=== PATIENT | male | born 1985 ===

== ENCOUNTER 2020-03-07 19:05 | Emergency (ER) | payer OTHER, SELFPAY ==
--- NOTE | 2020-03-07 19:28 | ED_ITS ---
HPI - General Adult General Chief complaint: General Medical Stated complaint: sinus pain Time Seen by Provider: 03/07/20 19:28 Source: patient History of Present Illness HPI narrative: Patient presents to the ED for sinus pain for 3 days and sneezing. patient denies any recent trauma to the face, fever, chills, chest pain, shorntess of breath, weakness, nausea, or emesis. Related Data Previous Rx's Medication Instructions Recorded loratadine [Claritin] 10 mg PO DAILY #20 tab 03/07/20 naproxen 500 mg PO BID PRN #20 tab 03/07/20 triamcinolone acetonide [Nasacort] 2 spray INTRANASAL DAILY 7 Days 03/07/20 #16.9 ml Allergies Allergy/AdvReac Type Severity Reaction Status Date / Time nicotine [From NICODERM CQ] Allergy Unknown HIVES Unverified 11/04/19 15:39 nicoderm patches Allergy Unknown rash Uncoded 09/22/19 00:00 Review of Systems Review of Systems: Yes all other systems are reviewed and are negative Constitutional: Constitutional: Reports as per HPI and Reports no additional constitutional complaints Eyes: Eyes: Reports as per HPI and Reports no additional eye complaints ENT: Reports system reviewed and no additional complaints, except as documented Comments: nasal/sinus pain Cardiovascular: Cardiovascular: Reports as per HPI and Reports no additional cardiovascular complaints Respiratory: Respiratory: Reports as per HPI and Reports no additional respiratory complaints Gastrointestinal: Gastrointestinal: Reports as per HPI and Reports no additional gastrointestinal complaints Genitourinary: Genitourinary: Reports no additional male genitourinary complaints and Reports as per HPI Musculoskeletal: Musculoskeletal: Reports no additional musculoskeletal complaints and Reports as per HPI Neurologic: Reports system reviewed and no additional complaints, except as documented and Reports as per HPI Psychiatric: Psychiatric: Reports no additional psychiatric complaints, Reports as per HPI, Reports abnormal sleep pattern and Reports anxiety PMF Past Medical History Medical History (Updated 03/07/20 @ 19:34 by ARIES Avery) No known health problems Social History Social History Advance Directives: No Advance Directives Information Provided: Yes Physical Exam Vital Signs: Vital Signs: Last Vital Signs Temp 98 F 03/07/20 19:30 Pulse 99 03/07/20 19:30 Resp 20 03/07/20 19:30 BP 149/83 H 03/07/20 19:30 Pulse Ox 98 03/07/20 19:30 Body Mass Index 48.8 Const: General: cooperative, healthy appearing, comfortable, no acute distress, well developed, alert, awake and Physically active Orientation/consciousness: patient oriented x3 HENMT: Other: positive for facial sinus tenderness. nares negative for discharge from nares. negative for ecchymosis/abrasions on face. Head: Yes normal to inspection, Yes No palpable skull fracture present, Yes normocephalic and Yes atraumatic Throat: Yes posterior oropharynx normal, Yes tonsils normal and Yes uvula midline Eyes: General: appearance normal, both eyes and all related structures Neck: Neck: Yes normal visual inspection, Yes full ROM, Yes no lymphadenopathy, Yes no meningeal signs, Yes trachea midline, Yes supple and No tender Chest: Chest palpation & inspection: normal inspection of the chest and normal palpation of entire chest wall Resp: Effort & Inspection: normal respiratory effort and able to speak in complete sentences Auscultation: clear to auscultation bilaterally Cardio: Jugular venous distension: no JVD Heart sounds: S1 normal heart sound present and S2 normal heart sound present GI: Inspection: Yes normal to inspection and No abdominal wall ecchymosis Palpation (GI): Soft to palpation, not firm, nontender, no guarding and not rigid : General: No CVA tenderness and Yes no CVA tenderness Back/Spine/Pelvis: Back: no CVA tenderness, No CVA tenderness and No back tenderness Skin: General skin exam: no rashes or lesions noted and elasticity normal Neuro: General: patient oriented x3, gait normal, no meningeal signs and CN's II-XI intact bilaterally Cranial nerves: Yes CN's II-XII intact bilaterally Extrem: General: Yes normal to inspection and Yes full ROM Psych: Appearance: grossly normal, well kempt and not disheveled Course Course Course Narrative: history and physical exam indicate sinusitis. patient will be discharged with nasocort and claritin. Reevaluation(s) Reevaluation #1: Patient swabbed for the Covid-19. DIscharged with meds. Time: 19:32 Medical Decision Making MDM Narrative Medical decision making narrative: Sinusitis Lab Data Labs: Lab Results 03/07/20 Range/Units 19:33 Coronavirus (PCR) NEGATIVE (Negative) Influenza Type A (PCR) NEGATIVE (Negative) Influenza Type B (PCR) NEGATIVE (Negative) RSV RNA Qual (PCR) NEGATIVE (Negative) Discharge Plan Discharge Clinical Impression: Sinusitis Patient Disposition: Home, Self-Care Instructions: Sinusitis (ED), Rhinosinusitis (ED) Additional Instructions: Return to the ED immediatley for worsening facial pain, dizziness, nares discharge, fever, chills, chest pain, severe headache, or any other concerning symptoms. Please follow up with PCP. Prescriptions: New triamcinolone acetonide [Nasacort] 55 mcg aerosol,spray 2 spray intranasal DAILY 7 Days Qty: 16.9 RF: 0 loratadine [Claritin] 10 mg tablet 10 mg PO DAILY Qty: 20 RF: 0 naproxen 500 mg tablet 500 mg PO BID PRN (Reason: pain) Qty: 20 RF: 0 Interventions: ED Discharge Assessment Last Done: 03/07/20 19:40 Discharge Date/Time: 03/07/20 19:41 Print Language: Mongolian
[2020-03-07 19:30] VITALS: BP 149/83; PULSE 99; RESP 20; TEMP 36.6; O2SAT 98; BMI 48.8
[2020-03-07 20:25] LABS: Influenza A PCR NEGATIVE (Negative); Influenza B PCR NEGATIVE (Negative); Resp Syncy Virus RNA Qual PCR NEGATIVE (Negative); SARS COV2 PCR INHOUSE NEGATIVE (Negative)
== END 2020-03-07 19:41 | disposition home or self-care (01) ==
PROVIDERS: Physician Assistant; Emergency Provider Emergency Medicine Emergency Medical Services
DX: J32.9 Chronic sinusitis, unspecified (principal); Z20.822 Contact with and (suspected) exposure to COVID-19
CPT/HCPCS: 0241U; 36415; 99283

== ENCOUNTER 2020-08-18 22:01 | Emergency (ER) | payer OTHER, SELFPAY ==
[2020-08-18 22:03] VITALS: BP 143/72; PULSE 93; RESP 18; TEMP 35.9; O2SAT 99; BMI 49.3
[2020-08-18 22:55] VITALS: BP 130/77; PULSE 89; RESP 18; TEMP 36.6; O2SAT 98
[2020-08-18 23:02] LABS: Glucose Urine UA NEG (NEG); Leukocyte Esterase Urine NEG (NEG); Nitrite Urine NEG (NEG); Specific Gravity - Urine 1.025 (1.005-1.025); Urine Blood TRACE (NEG); Urine Ketones NEG (NEG); Urine Protein NEG (NEG-TRACE)
[2020-08-18 23:11] LABS: Appearance Urine CLEAR; Color Urine YELLOW
[2020-08-18 23:14] LABS: Squamous Epithelial Cell Urine TRACE /LPF; WBC Urine 0-2 /HPF (0-4)
--- NOTE | 2020-08-18 23:32 | ED.BACK ---
HPI - Back Pain/Injury General Chief Complaint: Back Pain/Injury Stated Complaint: back pain for multiple days Time Seen by Provider: 08/18/20 23:16 Source: patient Mode of arrival: ambulatory Limitations: no limitations History of Present Illness HPI Narrative: patient with chronic back pain with flare of off and on for many many years for last few days noticed pain in the lower back sooner with that in the past no radiation of pain to the lower extremities no bladder or bowel involvement no motor weakness no paresthesias patient also complaining of smegma accumulation on his penis for long time with foul-smelling Related Data Previous Rx's Medication Instructions Recorded loratadine [Claritin] 10 mg PO DAILY #20 tab 03/07/20 naproxen 500 mg PO BID PRN #20 tab 03/07/20 triamcinolone acetonide [Nasacort] 2 spray INTRANASAL DAILY 7 Days 03/07/20 #16.9 ml cyclobenzaprine 10 mg PO Q8H #20 tab 08/18/20 tramadol 50 mg PO Q6H PRN #20 tab 08/18/20 Allergies Allergy/AdvReac Type Severity Reaction Status Date / Time nicotine [From NICODERM CQ] Allergy Unknown HIVES Verified 08/18/20 22:03 nicoderm patches Allergy Unknown rash Uncoded 09/22/19 00:00 Review of Systems Review of Systems: Yes all other systems are reviewed and are negative [facility] Past Medical History Medical History No known health problems Social History Social History Advance Directives: No Advance Directives Information Provided: No Physical Exam Vital Signs: Vital Signs: Last Vital Signs Temp 97.9 F 08/18/20 22:55 Pulse 89 08/18/20 22:55 Resp 18 08/18/20 22:55 BP 130/77 08/18/20 22:55 Pulse Ox 98 08/18/20 22:55 Body Mass Index 49.3 Const: General: no acute distress Nutritional Appearance: obese Orientation/consciousness: patient oriented x3 HENMT: Head: Yes normocephalic Chest: Chest palpation & inspection: normal inspection of the chest Resp: Effort & Inspection: normal respiratory effort Auscultation: clear to auscultation bilaterally Cardio: Palpation: normal PMI Rate: regular rate Rhythm: regular rhythm Heart sounds: S1 normal heart sound present and S2 normal heart sound present GI: Inspection: Yes normal to inspection Palpation (GI): Soft to palpation Auscultation: normal bowel sounds : General: Yes no CVA tenderness Back/Spine/Pelvis: Back: no CVA tenderness Thoracic/Lumbar Spine: thoracic and lumbar spine normal to inspection, straight leg raise negative bilaterally, paraspinal muscle tenderness and thoraco-lumbar spasm Back/spine/pelvis image: 1. diffuse lumbar paraspinal tenderness no focal spinal tenderness Neuro: General: patient oriented x3, gait normal, Normal light touch and pain sensation and no focal motor deficits MDM - Back Pain/Injury Lab Data Labs: Lab Results 08/18/20 Range/Units 22:50 Urine Color YELLOW Urine Appearance CLEAR Urine pH 6.0 (5.0-8.0) Ur Specific [place] 1.025 (1.005-1.025) Urine Protein NEG (NEG-TRACE) MG/DL Urine Glucose (UA) NEG (NEG) MG/DL Urine Ketones NEG (NEG) MG/DL Urine Blood TRACE (NEG) Urine Nitrite NEG (NEG) Ur Leukocyte Esterase NEG (NEG) Urine RBC 1-4 (0) /HPF Urine WBC 0-2 (0-4) /HPF Ur Squamous Epith Cells TRACE /LPF Urine Bacteria NONE /LPF Discharge Plan Discharge Clinical Impression: Strain of lumbar region Qualifiers: Encounter type: initial encounter Qualified Code(s): S39.012A - Strain of muscle, fascia and tendon of lower back, initial encounter Patient Disposition: Home, Self-Care Instructions: Back Pain (ED) Additional Instructions: take pain medication and muscle relaxant as advised follow up with PCP Prescriptions: New cyclobenzaprine 10 mg tablet 10 mg PO Q8H Qty: 20 RF: 0 tramadol 50 mg tablet 50 mg PO Q6H PRN (Reason: pain) Qty: 20 RF: 0 No Action triamcinolone acetonide [Nasacort] 55 mcg aerosol,spray 2 spray intranasal DAILY 7 Days Qty: 16.9 RF: 0 loratadine [Claritin] 10 mg tablet 10 mg PO DAILY Qty: 20 RF: 0 naproxen 500 mg tablet 500 mg PO BID PRN (Reason: pain) Qty: 20 RF: 0
[2020-08-18] MEDS: Cyclobenzaprine HCl 10 MG TABLET PO (23:36)
[2020-08-18] MEDS: traMADoL HCL 50 MG TABLET 100 MG PO (23:36)
[2020-08-18 23:37] VITALS: BP 133/79; PULSE 86; RESP 18; O2SAT 99
[2020-08-19 09:23] LABS: CT PCR NOT DETECTED (Not Detect.); NG PCR NOT DETECTED (Not Detect.)
== END 2020-08-18 23:57 | disposition home or self-care (01) ==
PROVIDERS: Emergency Provider Internal Medicine; PCP Internal Medicine
DX: S39.012A Strain of muscle, fascia and tendon of lower back, initial encounter (principal); N48.89 Other specified disorders of penis; X58.XXXA Exposure to other specified factors, initial encounter; Y93.9 Activity, unspecified; Y92.9 Unspecified place or not applicable; Y99.9 Unspecified external cause status
CPT/HCPCS: 81001; 81003; 87491; 87591; 99283; 99284

== ENCOUNTER 2020-08-27 22:23 | Emergency (ER) | payer OTHER, SELFPAY ==
[2020-08-27 22:24] VITALS: BP 136/86; PULSE 83; RESP 15; TEMP 37; O2SAT 98; BMI 47.5
--- NOTE | 2020-08-27 23:20 | ED_ITS ---
HPI - Back Pain/Injury General Chief Complaint: Back Pain/Injury Stated Complaint: back pain Time Seen by Provider: 08/27/20 23:12 Source: patient Mode of arrival: ambulatory Limitations: no limitations History of Present Illness HPI Narrative: Patient comes emergency room complaining of chronic back pain that radiates towards the right leg. Patient states he had an accident 2 years ago, where he slipped on wet floor, and since then he has been having intermittent episodes of chronic back pain. Patient was seen here on August 18 for the same reason. Patient has been taking tramadol and cyclobenzaprine with minimal relief. Patient denies urinary/fecal incontinence or retention. No fever chills Related Data Previous Rx's Medication Instructions Recorded loratadine [Claritin] 10 mg PO DAILY #20 tab 03/07/20 naproxen 500 mg PO BID PRN #20 tab 03/07/20 triamcinolone acetonide [Nasacort] 2 spray INTRANASAL DAILY 7 Days 03/07/20 #16.9 ml cyclobenzaprine 10 mg PO Q8H #20 tab 08/18/20 tramadol 50 mg PO Q6H PRN #20 tab 08/18/20 ketorolac 10 mg PO TID PRN 5 Days #10 tab 08/27/20 Allergies Allergy/AdvReac Type Severity Reaction Status Date / Time nicotine [From NICODERM CQ] Allergy Unknown HIVES Verified 08/27/20 23:18 nicoderm patches Allergy Unknown rash Uncoded 09/22/19 00:00 Review of Systems Review of Systems: Constitutional : No Weight loss, No Fever, No Chills, No Night Sweats, No Fatigue, No Malaise ENT/Mouth : No Hearing loss, No Ear Pain, No Nasal Congestion, No Sinus Pain, No Hoarseness, No sore throat, No Rhinorrhea, No Swallowing Difficulty Eyes: No Eye Pain, No Swelling, No Redness, No Foreign Body, No Discharge, No Vision Changes Cardiovascular : No Chest Pain, No SOB, No Dyspnea on Exertion, No Orthopnea, No Edema, No Palpitations Respiratory : No Cough, No Sputum, No Wheezing, No Smoke Exposure, No Dyspnea Gastrointestinal : No Nausea, No Vomiting, No Diarrhea, No Constipation, No abdominal Pain, No Hematochezia, No Melena Genitourinary : no irregular bleeding, No Dysuria, No Urinary Frequency, No Hematuria, No Urinary Incontinence, No Urgency, No Flank Pain, No Urinary Flow Changes, No Hesitancy Musculoskeletal : Complaining lower lumbar back pain radiating towards the right leg with certain movements, no Myalgias, No Joint Swelling Skin : No Skin Lesions, No rash Neuro : No Weakness, No Numbness, No Paresthesias, No Loss of Consciousness, No Dizziness, No Headache Psych : No Anxiety/Panic, No Depression, No SI/HI/AH/VH, No Social Issues, Heme/Lymph: No Bruising, No Bleeding,No Lymphadenopathy Endocrine : No Polyuria, No Polydipsia, No Temperature Intolerance [facility] Past Medical History Medical History (Updated 08/27/20 @ 23:25 by Pilar Fuentes MD) No known health problems Sciatica Social History Social History Advance Directives: No Advance Directives Information Provided: No Physical Exam Vital Signs: Vital Signs: Last Vital Signs Temp 98.6 F 08/27/20 22:24 Pulse 83 08/27/20 22:24 Resp 15 08/27/20 22:24 BP 136/86 08/27/20 22:24 Pulse Ox 98 08/27/20 22:24 Body Mass Index 47.5 Appearance: Alert. Oriented X3. No acute distress. Eyes: Pupils equal, round and reactive to light. ENT: Pharynx normal. Neck: Normal inspection. Neck supple. No lymph nodes noted. No crepitus CVS: Normal heart rate and rhythm. Pulses normal. Normal S1 and S2 Respiratory: No respiratory distress. Breath sounds normal. No Wheezing. No rales Abdomen: Soft and nontender. No rigidity. No distention. Obese Back: No flank pain, mild discomfort with palpation in lumbar area, positive straight raise leg test on the right side Skin: Skin warm and dry. Normal skin color. Normal skin turgor. Extremities: No lower extremity edema. No Lacerations. No Rash Neuro: Oriented X 3. No motor deficit. No sensory deficit. Moving all extermities. No slurred speech. Course Course Course Narrative: I discussed with the patient that he will likely need an MRI and physical therapy. Patient instructed to follow-up with his primary care physician. Also patient instructed not to take ibuprofen or NSAIDs while he is taking Toradol. Today, patient was given 1 initial shot of Toradol and IM Decadron Discharge Plan Discharge Clinical Impression: Sciatica Qualifiers: Laterality: right Qualified Code(s): M54.31 - Sciatica, right side Patient Disposition: Home, Self-Care Instructions: Sciatica (ED), Lumbar Radiculopathy (ED), Lower Back Exercises (ED) Additional Instructions: Her medication was sent to the [facility] in [facility]. Please follow-up with your primary care physician tomorrow. If you have any worsening or new symptoms, please return to the emergency room or call 911 Prescriptions: New ketorolac 10 mg tablet 10 mg PO TID PRN (Reason: pain) 5 Days Qty: 10 RF: 0 No Action triamcinolone acetonide [Nasacort] 55 mcg aerosol,spray 2 spray intranasal DAILY 7 Days Qty: 16.9 RF: 0 loratadine [Claritin] 10 mg tablet 10 mg PO DAILY Qty: 20 RF: 0 naproxen 500 mg tablet 500 mg PO BID PRN (Reason: pain) Qty: 20 RF: 0 cyclobenzaprine 10 mg tablet 10 mg PO Q8H Qty: 20 RF: 0 tramadol 50 mg tablet 50 mg PO Q6H PRN (Reason: pain) Qty: 20 RF: 0
[2020-08-27] MEDS: Ketorolac Tromethamine 60 MG/2 ML VIAL IM (23:38)
[2020-08-27] MEDS: dexAMETHasone sod phosphate 4 MG/ML VIAL 6 MG IM (23:39)
== END 2020-08-27 23:57 | disposition home or self-care (01) ==
PROVIDERS: Emergency Provider Emergency Medicine; PCP Internal Medicine
DX: M54.31 Sciatica, right side (principal); Z79.891 Long term (current) use of opiate analgesic; Z79.899 Other long term (current) drug therapy
CPT/HCPCS: 96372; 99284; J1100; J1885

== ENCOUNTER 2020-10-20 11:06 | Emergency (ER) | payer OTHER, SELFPAY ==
[2020-10-20 11:09] VITALS: BP 124/73; PULSE 80; RESP 20; TEMP 36.1; O2SAT 99; BMI 48.8
--- NOTE | 2020-10-20 11:31 | ED.BACK ---
HPI - Back Pain/Injury General Chief Complaint: Back Pain/Injury Stated Complaint: SLIPPED BACK PAIN Time Seen by Provider: 10/20/20 11:21 Source: patient Mode of arrival: ambulatory Limitations: no limitations History of Present Illness HPI Narrative: Patient is a 35-year-old male with a past medical history of sciatica and chronic low back pain who comes in complaining of low back pain and sharp pains radiating down both legs. He states that 2 days ago, he slipped on a plastic stare that was wet and he was fine immediately after then the next morning when he woke up which was this morning, he could hardly move and he had sharp pains down both legs. He denies any urinary or bowel incontinence. Did not take any medications to help him feel better nor did he use ice. He states he has tried physical therapy and he states his doctor told him his insurance would not pay for an MRI so he has not been able to get one done. Related Data Previous Rx's Medication Instructions Recorded loratadine 10 mg tablet (Claritin) 10 mg PO DAILY #20 tab 03/07/20 naproxen 500 mg tablet 500 mg PO BID PRN #20 tab 03/07/20 triamcinolone acetonide 55 mcg 2 spray INTRANASAL DAILY 7 Days 03/07/20 nasal spray aerosol (Nasacort) #16.9 ml cyclobenzaprine 10 mg tablet 10 mg PO Q8H #20 tab 08/18/20 tramadol 50 mg tablet 50 mg PO Q6H PRN #20 tab 08/18/20 ketorolac 10 mg tablet 10 mg PO TID PRN 5 Days #10 tab 08/27/20 naproxen 500 mg tablet 500 mg PO BID PRN 10 Days #20 tab 10/20/20 prednisone 50 mg tablet 50 mg PO DAILY 4 Days #4 tab 10/20/20 Allergies Allergy/AdvReac Type Severity Reaction Status Date / Time nicotine [From NICODERM CQ] Allergy Unknown HIVES Verified 08/27/20 23:18 nicoderm patches Allergy Unknown rash Uncoded 09/22/19 00:00 Review of Systems Review of Systems: Yes all other systems are reviewed and are negative PMFSH Past Medical History Medical History No known health problems Sciatica Physical Exam Vital Signs: Vital Signs: Last Vital Signs Temp 97.6 F 10/20/20 12:35 Pulse 66 10/20/20 12:35 Resp 18 10/20/20 12:35 BP 117/65 10/20/20 12:35 Pulse Ox 98 10/20/20 12:35 Body Mass Index 48.8 Const: General: cooperative, healthy appearing, comfortable, no acute distress and well developed Orientation/consciousness: patient oriented x3 Limitations: no limitations HENMT: Head: Yes normal to inspection Eyes: General: appearance normal, both eyes and all related structures Neck: Neck: Yes normal visual inspection and Yes full ROM Resp: Effort & Inspection: normal respiratory effort and able to speak in complete sentences Back/Spine/Pelvis: Thoracic/Lumbar Spine: straight leg raise positive bilateral Skin: General skin exam: no rashes or lesions noted Neuro: General: patient oriented x3 Extrem: General: Yes normal to inspection Course Course Course Narrative: Patient is a 35-year-old male with a past medical history of sciatica and chronic low back pain who comes in complaining of low back pain and sharp pains radiating down both legs. vss, physical exam remarkable for patient unable to ambulate well, positive straight leg test both sides, will give Toradol and prednisone and re-evaluate Reevaluation(s) Reevaluation #1: Patient still in pain, will use lidocaine patches on low back and give Tylenol for synergistic effect Time: 12:51 Discharge Plan Discharge Clinical Impression: Sciatica Qualifiers: Laterality: bilateral Qualified Code(s): M54.31 - Sciatica, right side Patient Disposition: Home, Self-Care Instructions: Sciatica (ED), Lower Back Exercises (ED) Additional Instructions: As discussed, please follow-up with your PCP as you may need physical therapy and/or an MRI. If you lose control of your bladder or bowels, please return to the emergency department PASTOR. Please do not take any naproxen a lever ibuprofen until 5pm this evening as it will duplicate a medication we gave you in the emergency department today and would not be good for your kidneys. I have sent prescriptions for naproxen and prednisone to your pharmacy, you can also add in [id number] Tylenol as needed for extra pain relief or by lidocaine patches [id number] for extra pain relief. Can also use ice or heat, whichever feels better. Prescriptions: New prednisone 50 mg tablet 50 mg PO DAILY 4 Days Qty: 4 RF: 0 naproxen 500 mg tablet 500 mg PO BID PRN (Reason: pain) 10 Days Qty: 20 RF: 0 No Action triamcinolone acetonide [Nasacort] 55 mcg aerosol,spray 2 spray intranasal DAILY 7 Days Qty: 16.9 RF: 0 loratadine [Claritin] 10 mg tablet 10 mg PO DAILY Qty: 20 RF: 0 naproxen 500 mg tablet 500 mg PO BID PRN (Reason: pain) Qty: 20 RF: 0 cyclobenzaprine 10 mg tablet 10 mg PO Q8H Qty: 20 RF: 0 tramadol 50 mg tablet 50 mg PO Q6H PRN (Reason: pain) Qty: 20 RF: 0 ketorolac 10 mg tablet 10 mg PO TID PRN (Reason: pain) 5 Days Qty: 10 RF: 0 Referrals: Margarette Frederick MD [Primary Care Provider] - 2 days (Sciatica) Interventions: ED Discharge Assessment Last Done: 10/20/20 14:02 Discharge Date/Time: 10/20/20 14:03
[2020-10-20] MEDS: predniSONE 10 MG TABLET 50 MG PO (11:35)
[2020-10-20] MEDS: Ketorolac Tromethamine 60 MG/2 ML VIAL IM (11:38)
[2020-10-20 12:35] VITALS: BP 117/65; PULSE 66; RESP 18; TEMP 36.4; O2SAT 98
[2020-10-20] MEDS: Lidocaine 4 % Patch ADH..PATCH 2 PATCH TRANSDERMA (12:48)
[2020-10-20] MEDS: Acetaminophen 325 MG TABLET 650 MG PO (12:49)
== END 2020-10-20 14:03 | disposition home or self-care (01) ==
PROVIDERS: Emergency Provider Emergency Medicine; PCP Internal Medicine
DX: M54.31 Sciatica, right side (principal)
CPT/HCPCS: 96372; 99284; J1885

== ENCOUNTER 2020-11-03 11:00 | Outpatient (RCR) | payer OTHER, SELFPAY ==
--- NOTE | 2020-10-27 14:13 | MHC.PT.EP ---
[facility] [place] Office [place] Office [place] Office [address] Lebron Wright [address] [phone] F: [phone] F: [phone] F: [phone] F: [phone] Physical Therapy Plan of Care Date of Evaluation: Date of Surgery: NA Diagnosis: BACK PAIN Assessment: Pt IS 35 YO M REFERRED TO PT FROM DR TRONCOSO WITH BACK PAIN. 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 HAD PT WITHOUT SIGNIF RELIEF, HAS HAD MED TRIALS, INJECTIONS, HAS TRIED MH, ICE , ALL WITHOUT SIGNIF RELIEF. PRESENTS WITH SXS OF NERVE IRRITATION WITH CENTRALIZATION NOTED WITH TRUNK EXTENSION. Pt WITH TTP LUMBAR PARASPINALS AND SI JTS (?PELVIC ASYMM) WITH DECREASED CORE STRENGTH BUT GOOD LE STRENGTH. SHOULD BENEFIT FROM PT TO ADDRESS THESE ISSUES. Frequency and Duration: The patient will be seen 2X/WK X 6 WKS Short Term Goals: 1. INCREASED AWARENESS BACK CARE AND POSTURE 2. 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 DECREASED BACK PAIN AT LEAST 50% WITH ADLS 2. I HEP WITH DC EX PLAN Treatment Plan: Modalities to reduce pain, spasms and effusion. Manual therapy to restore motion and function. Therapeutic exercise to improve strength and flexibility. Neuromuscular re-education for posture and balance. Therapeutic activities to return to functional activities of daily living. Electronically signed by: CAROLINE DEWITT PT Please sign and return to therapist. Thank you for your referral.
--- NOTE | 2020-12-25 14:49 | MHC.PT.DC ---
[facility] [place] Office [place] Office [place] Office [address] Lebron Wright [address] [phone] F: [phone] F: [phone] F: [phone] F: [phone] Physical Therapy Discharge Report Diagnosis: BACK PAIN Date of Surgery: NA Date of Evaluation: 10/27/20 Date of Discharge: 12/25/20 Treatments to Date: 2 Cancellations to Date: No Shows to Date: 4 Discharge Status: Visit Non-compliance Discharge Summary: Pt SEEN FOR INIT EVAL AND 1 VISIT. PER ASSESSMENT AT THAT VISIT PER DAQUAN WOOD FACER OPERATOR: 'Pt jeannette Ext bias and nuetral abdominal posture program w/o C/O of px and proper form demonstrated.' Pt THEN WITH MULTIPLE NO SHOWS Electronically signed by: CAROLINE DEWITT PT Please sign and return to therapist. Thank you for your referral.
== END 2020-12-25 14:53 | disposition home or self-care (01) ==
LOC: HO.PT 11:00
PROVIDERS: PCP Internal Medicine; Visit Provider Internal Medicine
DX: M54.9 Dorsalgia, unspecified (principal)
CPT/HCPCS: 97110; 97140; 97161; 97530

== ENCOUNTER 2020-11-08 11:42 | Outpatient (REF) | payer OTHER, SELFPAY ==
[2020-11-08 14:56] LABS: Estimated Average Glucose 131 mg/dL; Hemoglobin A1c % 6.2 %
[2020-11-08 15:05] LABS: Alanine Aminotransferase 18 U/L (0-40); Albumin Level 4.1 g/dL (3.5-5.0); Alkaline Phosphatase 66 U/L (39-117); Anion Gap 16 (12-20); Aspartate Amino Transferase 11 U/L (5-37); Bilirubin Total 0.4 mg/dL (0.0-1.0); Blood Urea Nitrogen 12 mg/dL (9-16); Calcium 8.9 mg/dL (8.4-10.2); Carbon Dioxide 24 mmol/L (22-29); Chloride 106 mmol/L (96-108); Cholesterol 154 mg/dL; Estimated Glomerular Filt Rate > 60; Glucose Fasting 105 mg/dL (60-99); HDL Cholesterol 37 mg/dL; LDL Cholesterol Calculated 94 mg/dl; Potassium 4.6 mmol/L (3.3-5.1); Sodium 141 mmol/L (135-145); Total Protein 6.7 g/dL (6.5-8.0); Triglycerides 117 mg/dL
[2020-11-08 15:27] LABS: Thyroid Stimulating Hormone 2.17 uIU/mL (0.32-4.0)
== END 2020-11-08 11:43 | disposition home or self-care (01) ==
LOC: HO.10HDL 11:42
PROVIDERS: Visit Provider Internal Medicine
DX: Z00.01 Encounter for general adult medical examination with abnormal findings (principal); B35.3 Tinea pedis; E66.01 Morbid (severe) obesity due to excess calories; G47.33 Obstructive sleep apnea (adult) (pediatric); M54.5 Low back pain
CPT/HCPCS: 36415; 80053; 80061; 83036; 84443

== ENCOUNTER → 2020-11-23 09:09 | Outpatient (BNVA) | payer OTHER, SELFPAY | PROVIDERS: PCP Internal Medicine; Visit Provider Urology | DX: N48.1 Balanitis (principal) | CPT/HCPCS: 99212 ==

== ENCOUNTER 2020-12-02 01:11 | Emergency (ER) | payer OTHER, SELFPAY ==
[2020-12-02 01:16] VITALS: BP 139/93; PULSE 97; RESP 16; TEMP 36.6; O2SAT 96; BMI 49.3
[2020-12-02 02:40] VITALS: BP 119/63; PULSE 86; RESP 18; TEMP 36.7; O2SAT 98
[2020-12-02] MEDS: Lidocaine 4 % Patch ADH..PATCH 1 PATCH TRANSDERMA (04:27)
[2020-12-02] MEDS: Cyclobenzaprine HCl 10 MG TABLET PO (04:27)
[2020-12-02] MEDS: Ketorolac Tromethamine 15 MG/ML VIAL IM (04:27)
[2020-12-02] MEDS: Acetaminophen 325 MG TABLET 975 MG PO (04:27)
--- NOTE | 2020-12-02 04:29 | ED_ITS ---
HPI - Back Pain/Injury General Chief Complaint: Back Pain/Injury Stated Complaint: lower back pain radiates to legs Time Seen by Provider: 12/02/20 04:17 Source: patient Mode of arrival: ambulatory History of Present Illness HPI Narrative: This is a 35-year-old male with acute on chronic back pain that started this morning and is not associated with any recent trauma. In addition, patient denies any associated fever, chills, groin numbness, bowel or bladder dysfunction does states that the pain extends into his right lower extremity. He denies any prior history of kidney stones. Related Data Previous Rx's Medication Instructions Recorded loratadine 10 mg tablet (Claritin) 10 mg PO DAILY #20 tab 03/07/20 naproxen 500 mg tablet 500 mg PO BID PRN #20 tab 03/07/20 triamcinolone acetonide 55 mcg 2 spray INTRANASAL DAILY 7 Days 03/07/20 nasal spray aerosol (Nasacort) #16.9 ml cyclobenzaprine 10 mg tablet 10 mg PO Q8H #20 tab 08/18/20 tramadol 50 mg tablet 50 mg PO Q6H PRN #20 tab 08/18/20 ketorolac 10 mg tablet 10 mg PO TID PRN 5 Days #10 tab 08/27/20 naproxen 500 mg tablet 500 mg PO BID PRN 10 Days #20 tab 10/20/20 prednisone 50 mg tablet 50 mg PO DAILY 4 Days #4 tab 10/20/20 clotrimazole-betamethasone 1 1 appl TOPICAL BID 28 Days #15 g 11/23/20 %-0.05 % topical cream cyclobenzaprine 10 mg tablet 10 mg PO BEDTIME PRN #3 tab 12/02/20 ketorolac 10 mg tablet 10 mg PO Q6H PRN 5 Days #20 tab 12/02/20 Allergies Allergy/AdvReac Type Severity Reaction Status Date / Time nicotine [From NICODERM CQ] Allergy Unknown HIVES Verified 12/02/20 01:16 nicoderm patches Allergy Unknown rash Uncoded 09/22/19 00:00 Review of Systems Review of Systems: Pertinent positives and negatives as stated in HPI 10 point review of systems is otherwise negative. PMFSH Past Medical History Source: nursing notes reviewed Medical History No known health problems Sciatica Social History Social History Alcohol intake: never Patient Tobacco Use Status: Current everyday Tobacco user Use of substances other than those prescribed or required for medical reasons: No Advance Directives: No Advance Directives Information Provided: Yes Physical Exam Vital Signs: Vital Signs: Last Vital Signs Temp 98.1 F 12/02/20 02:40 Pulse 86 12/02/20 02:40 Resp 18 12/02/20 02:40 BP 119/63 12/02/20 02:40 Pulse Ox 98 12/02/20 02:40 Body Mass Index 49.3 VITAL SIGNS: Reviewed. GENERAL: Morbidly obese, Well developed, well nourished, in no acute distress. HEAD: Normocephalic/atraumatic EYES: PERRLA, EOMI OROPHARYNX: no oral lesions noted, posterior pharynx clear NECK: Supple, no adenopathy LUNGS: Normal breath sounds. No adventitious sounds or accessory muscle use. SpO2<98> CARDIOVASCULAR: Regular rate and rhythm without noted murmurs ABDOMEN: Soft, non-tender, non-distended with bowel sounds, no CVA tenderness BACK: There is no midline vertebral tenderness, straight leg test is negative RIGHT LOWER EXTREMITY: Neurovascular intact with palpable DP/PT SKIN: Inspection of the skin reveals no rashes NEUROLOGIC: Alert and oriented x 4. Strength and sensation to light touch were grossly intact x 4. Course Course Course Narrative: 35-year-old male with history and clinical presentation consistent with acute on chronic exacerbation of underlying back pain with sciatica the latter of which is also chronic. Patient will be provided with combination analgesics, muscle relaxant as well as a lidocaine patch. On review of all investigations there are no acute findings in on reassessment patient states that he has had minimal improvement of his pain and so he was provided 5 mg of oxycodone. On re-evaluation afterwards he states he feels better and he is otherwise stable for discharge with a safe ride home with his girlfriend. MDM - Back Pain/Injury Lab Data Labs: Lab Results 12/02/20 Range/Units 04:30 Urine Color YELLOW Urine Appearance CLEAR Urine pH 6.0 (5.0-8.0) Ur Specific [place] 1.025 (1.005-1.025) Urine Protein NEG (NEG-TRACE) MG/DL Urine Glucose (UA) NEG (NEG) MG/DL Urine Ketones NEG (NEG) MG/DL Urine Blood NEG (NEG) Urine Nitrite NEG (NEG) Ur Leukocyte Esterase NEG (NEG) Discharge Plan Discharge Clinical Impression: Sciatica, Back pain Patient Disposition: Home, Self-Care Instructions: Sciatica (ED), Back Pain (ED), Lower Back Exercises (ED) Additional Instructions: 1. Tylenol 1000 mg, orally, every 6 hours as needed for pain control. Do not exceed 4000 mg within 24 hours. 2. Lidocaine patch, this is available [id number] and should be apply to area of maximal tenderness as directed along outside packaging. 3. Follow-up with your primary care provider on Friday morning for re-evaluation further outpatient management. Prescriptions: New ketorolac 10 mg tablet 10 mg PO Q6H PRN (Reason: pain) 5 Days Qty: 20 RF: 0 cyclobenzaprine 10 mg tablet 10 mg PO BEDTIME PRN (Reason: muscle spasm) Qty: 3 RF: 0 No Action triamcinolone acetonide [Nasacort] 55 mcg aerosol,spray 2 spray intranasal DAILY 7 Days Qty: 16.9 RF: 0 loratadine [Claritin] 10 mg tablet 10 mg PO DAILY Qty: 20 RF: 0 naproxen 500 mg tablet 500 mg PO BID PRN (Reason: pain) Qty: 20 RF: 0 cyclobenzaprine 10 mg tablet 10 mg PO Q8H Qty: 20 RF: 0 tramadol 50 mg tablet 50 mg PO Q6H PRN (Reason: pain) Qty: 20 RF: 0 ketorolac 10 mg tablet 10 mg PO TID PRN (Reason: pain) 5 Days Qty: 10 RF: 0 prednisone 50 mg tablet 50 mg PO DAILY 4 Days Qty: 4 RF: 0 naproxen 500 mg tablet 500 mg PO BID PRN (Reason: pain) 10 Days Qty: 20 RF: 0 clotrimazole-betamethasone 1-0.05 % cream 1 appl topical BID 28 Days Qty: 15 RF: 0 Referrals: Margarette Frederick MD [Primary Care Provider] - 2 days
[2020-12-02 04:39] LABS: Appearance Urine CLEAR; Color Urine YELLOW; Glucose Urine UA NEG (NEG); Leukocyte Esterase Urine NEG (NEG); Nitrite Urine NEG (NEG); Specific Gravity - Urine 1.025 (1.005-1.025); Urine Blood NEG (NEG); Urine Ketones NEG (NEG); Urine Protein NEG (NEG-TRACE)
[2020-12-02 04:41] LABS: UACC Culture Trigger NO
[2020-12-02] MEDS: oxyCODONE HCl Immed Release 5 MG TABLET PO (05:47)
--- NOTE | 2020-12-02 06:01 | PC.NURSE ---
Pt alert and oriented x4, clam and cooperative. Pt states 6/10 back pain. Vitals stable, No IV in place. Pt educated on dc. Pt ambulated out to private car, picked up by girlfriend.
== END 2020-12-02 06:15 | disposition home or self-care (01) ==
PROVIDERS: Emergency Provider Student in an Organized Health Care Education/Training Program; PCP Internal Medicine
DX: M54.40 Lumbago with sciatica, unspecified side (principal)
CPT/HCPCS: 81003; 96372; 99284; 99285; J1885

== ENCOUNTER 2021-11-02 16:44 | Emergency (ER) | payer OTHER, SELFPAY ==
--- NOTE | ~2021-11-02 | XR_ITS ---
EXAMINATION: XR KNEE, LEFT CLINICAL INFORMATION: Injury, pain COMPARISON: None TECHNIQUE: Four views of the left knee. FINDINGS: Bones and soft tissues are normal. No fracture or joint effusion. Alignment is anatomic. Joint spaces are well maintained. No abnormal soft tissue calcification. XR/XR knee LT 4V IMPRESSION: Normal left knee.
[2021-11-02 17:30] VITALS: BP 121/76; PULSE 88; RESP 18; TEMP 36.6; O2SAT 98; BMI 49.3
--- NOTE | 2021-11-02 21:11 | ED.LOWEXIN ---
HPI - Extremity Injury (Lower) General Chief Complaint: Extremity Injury, Lower Stated Complaint: Left knee pain Time Seen by Provider: 11/02/21 21:10 Source: patient Mode of arrival: ambulatory Limitations: no limitations History of Present Illness HPI Narrative: 36-year-old male presenting with left knee pain x 1 week. The he reports, was at a family reunion last weekend in sustained a knee injury. He tells me the he cannot recall a specific event where he injured his knee but since then he has had pain generally for the entire left knee. He states that the pain is a dull ache in his worse with flexion, better with extension. He has not noticed any instability and has been ambulatory without issue. He does notice occasional ?clunk?. He denies any changes in sensation or any ankle pain or hip pain. He has been using a muscle relaxant which she has for his back pain at home without relief and took naproxen today without relief. Patient denies any additional complaints at this time including numbness,tingling, cool extremities, chest pain, shortness of breath, abdominal pain, nausea, vomiting, headache, dizziness, fever, chills. MD complaint: knee injury Related Data Previous Rx's Medication Instructions Recorded loratadine 10 mg tablet (Claritin) 10 mg PO DAILY #20 tabs 03/07/20 naproxen 500 mg tablet 500 mg PO BID PRN pain #20 tabs 03/07/20 triamcinolone acetonide 55 mcg 2 spray intranasal DAILY 1 week 03/07/20 nasal spray aerosol (Nasacort) #16.9 mL cyclobenzaprine 10 mg tablet 10 mg PO Q8H #20 tabs 08/18/20 tramadol 50 mg tablet 50 mg PO Q6H PRN pain #20 tabs 08/18/20 ketorolac 10 mg tablet 10 mg PO TID PRN pain 5 days #10 08/27/20 tabs naproxen 500 mg tablet 500 mg PO BID PRN pain 10 days #20 10/20/20 tabs prednisone 50 mg tablet 50 mg PO DAILY 4 days #4 tabs 10/20/20 clotrimazole-betamethasone 1 1 appl topical BID 4 weeks #15 11/23/20 %-0.05 % topical cream grams cyclobenzaprine 10 mg tablet 10 mg PO BEDTIME PRN muscle spasm 12/02/20 #3 tabs ketorolac 10 mg tablet 10 mg PO Q6H PRN pain 5 days #20 12/02/20 tabs Allergies Allergy/AdvReac Type Severity Reaction Status Date / Time nicotine [From NICODERM CQ] Allergy Unknown HIVES Verified 12/02/20 01:16 nicoderm patches Allergy Unknown rash Uncoded 09/22/19 00:00 Review of Systems Review of Systems: Constitutional : No Weight loss, No Fever, No Chills, No Fatigue, No Malaise ENT/Mouth : No sore throat, No Rhinorrhea Eyes: No Eye Pain, No Swelling, No Redness Cardiovascular : No Chest Pain, No SOB, No Dyspnea on Exertion, No Orthopnea, No Edema, No Palpitations Respiratory : No Cough, No Sputum, No Wheezing Gastrointestinal : No Nausea, No Vomiting, No Diarrhea, No Constipation, No abdominal Pain, No Hematochezia, No Melena Genitourinary : No Dysuria, No Urinary Frequency, No Hematuria, Musculoskeletal : + joint pain, No Myalgias, No Joint Swelling Skin : No Skin Lesions, No rash Neuro : No Weakness, No Numbness, No Dizziness, No Headache All other systems reviewed and are negative Yes all other systems are reviewed and are negative [facility] Past Medical History Attestation statement: The following information was validated with the patient. Source: old records reviewed and nursing notes reviewed Medical History No known health problems Sciatica Social History Social History Alcohol intake: never Patient Tobacco Use Status: Current everyday Tobacco user Advance Directives: No Advance Directives Information Provided: No Physical Exam Vital Signs: Vital Signs: Last Vital Signs Temp 97.9 F 11/02/21 17:30 Pulse 88 11/02/21 17:30 Resp 18 11/02/21 17:30 BP 121/76 11/02/21 17:30 Pulse Ox 98 11/02/21 17:30 O2 Del Method 11/02/21 17:30 BMI result Body Mass Index 49.3 Vital signs stable Appearance: Alert.? Oriented X3.? No acute distress.? Head: Normocephalic, atraumatic, no step-offs or deformities Eyes: Pupils equal, round and reactive to light.? Neck: Normal inspection.? Neck supple.? CVS: Normal heart rate and rhythm.? Pulses normal.? Respiratory: No respiratory distress.? Breath sounds normal.? Abdomen: Soft and nontender.? Skin: Skin warm and dry.? Normal skin color.? Normal skin turgor.? Extremities: No lower extremity edema.? No calf ttp. 5/5 strength to bilateral upper and lower extremities. Full range of motion to bilateral knees, no overlying erythema, warmth. Negative anterior, posterior drawer, valgus, varus, apley. No laxity to knee joints b/l. No gross abnormalities, distracting injuries on exam. 2+ popliteal pulses equal bilateral. 2+ dorsalis pedis, posterior tibialis and anterior tibialis pulses equal bilateral. Patient ambulating with steady gait, favoring unaffected side (right). Mild tenderness to palpation over the medial aspect of the right knee. No footdrop bilaterally. Back: No midline tenderness, no C-spine tenderness, full range of motion, no CVA tenderness bilaterally Neuro: Oriented X 3.? No motor deficit.? No sensory deficit. CN 2-12 intact Course Reevaluation(s) Reevaluation #1: Normal x-ray. Advised him to return with new or worsening symptoms and follow-up with PCP and Orthopedics as he may require an MRI for further evaluation and treatment. Worrisome signs and symptoms on discharge. Comfortable discharge home Time: 21:16 MDM - Extremity Injury (Lower) MDM Narrative Medical decision making narrative: 36 y/o M presenting with left knee pain x 1 week. Has been normally ambulatory, no changes in sensation, no instability. PE notable for mild tenderness to palpation over the left medial knee. No signs of septic joint, unlikely arterial occlusion. Likely knee sprain/strain. Unlikely acute ligament or tendon tear. Low suspicion for fracture dislocation. Unlikely joint effusion or gout Plan to obtain x-ray to rule out fracture/acute injury. Medical Records Attestation: I reviewed the patient's medical records. Lab Data Attestation: I reviewed the patient's lab results. Critical Care Time Critical Care Time Critical Care Time: No Discharge Plan Discharge Clinical Impression: Left knee pain Patient Disposition: Home, Self-Care Instructions: Knee Pain (ED) Additional Instructions: Take your medications as prescribed. If you were prescribed antibiotics today, it is important that you take your medication to their entirety, do not skip any doses, do not finish them early. Follow-up with your primary care provider this week. Follow-up with orthopedics if pain does not improve in a week or 2, information below. Rest, ice, compress and elevate extremity. You can take ibuprofen every 6 hours, Tylenol every 4 as needed for pain or discomfort. Return to the emergency department with new or worsening symptoms. Such as fevers, chills, chest pain, shortness of breath, nausea, vomiting, dizziness, headache, vision changes, lethargy In case of emergency call 911 Your x-ray looked normal, he may require an MRI for further evaluation and treatment. XR/XR knee LT 4V IMPRESSION: Normal left knee. ? Prescriptions: No Action triamcinolone acetonide [Nasacort] 55 mcg aerosol,spray 2 spray intranasal DAILY 7 Days Qty: 16.9 0RF Rx Instructions: administer into each nostril loratadine [Claritin] 10 mg tablet 10 mg PO DAILY Qty: 20 0RF naproxen 500 mg tablet 500 mg PO BID PRN (Reason: pain) Qty: 20 0RF cyclobenzaprine 10 mg tablet 10 mg PO Q8H Qty: 20 0RF tramadol 50 mg tablet 50 mg PO Q6H PRN (Reason: pain) Qty: 20 0RF ketorolac 10 mg tablet 10 mg PO TID PRN (Reason: pain) 5 Days Qty: 10 0RF Rx Instructions: Do not take naproxen, ibuprofen/Motrin with this medication. You may only use Tylenol or tramadol prednisone 50 mg tablet 50 mg PO DAILY 4 Days Qty: 4 0RF naproxen 500 mg tablet 500 mg PO BID PRN (Reason: pain) 10 Days Qty: 20 0RF ketorolac 10 mg tablet 10 mg PO Q6H PRN (Reason: pain) 5 Days Qty: 20 0RF Rx Instructions: Patient received Toradol in the emergency room. cyclobenzaprine 10 mg tablet 10 mg PO BEDTIME PRN (Reason: muscle spasm) Qty: 3 0RF clotrimazole-betamethasone 1-0.05 % cream 1 appl topical BID 28 Days Qty: 15 0RF Rx Instructions: Apply thin coat 2 times per day Referrals: [facility] [place] [facility] [Provider Group] - 2 weeks Margarette Frederick MD [Primary Care Provider] - 2 days Stand Alone Forms: Work/School Release
[2021-11-02] MEDS: Ketorolac Tromethamine 15 MG/ML VIAL 30 MG IM (21:28)
== END 2021-11-02 22:05 | disposition home or self-care (01) ==
PROVIDERS: Emergency Provider Emergency Medicine; PCP Internal Medicine
DX: M25.562 Pain in left knee (principal); F17.200 Nicotine dependence, unspecified, uncomplicated
CPT/HCPCS: 73564; 96372; 99283; 99284; J1885

== ENCOUNTER 2021-11-12 10:43 | Outpatient (REF) | payer OTHER, SELFPAY ==
[2021-11-12 13:38] LABS: MANUAL DIFF FLAG NO
[2021-11-12 13:41] LABS: Basophils Absolute Auto 0.1 X10*3/uL (0.0-0.2); Basophils Percent Auto 0.6 % (0-2); Eosinophils Absolute Auto 0.3 X10*3/uL (0.0-0.4); Eosinophils Percent Auto 3.2 % (0-4); Hematocrit 47.1 % (42.0-52.0); Hemoglobin 15.5 g/dl (14.0-18.0); Imm Gran Abs Auto 0.02 X10*3/uL (0.00-0.03); Imm Gran Pct Auto 0.2 % (0.0-0.4); Lymphocytes Absolute Auto 2.7 X10*3/uL (1.2-4.9); Lymphocytes Percent Auto 33.3 % (20-40); Mean Corpuscular HGB Conc 32.9 g/dl (31.0-36.0); Mean Corpuscular Hemoglobin 29.6 pg (27.0-33.0); Mean Corpuscular Volume 89.9 fL (80.0-98.0); Mean Platelet Volume 12.5 fL (9.4-12.4); Monocytes Absolute Auto 0.7 X10*3/uL (0.1-1.2); Monocytes Percent Auto 8.9 % (2-11); Neutrophils Absolute Auto 4.4 x10*3/uL (2.0-8.3); Neutrophils Percent Auto 53.8 % (45-73); Platelet Count 183 X10*3/uL (160-400); Red Blood Count 5.24 X10*6/uL (4.60-5.80); White Blood Count 8.2 X10*3/uL (4.8-10.8)
[2021-11-12 13:55] LABS: Alanine Aminotransferase 20 U/L (0-40); Albumin Level 4.3 g/dL (3.5-5.0); Alkaline Phosphatase 64 U/L (39-117); Anion Gap 16 (12-20); Aspartate Amino Transferase 15 U/L (5-37); Bilirubin Total 0.4 mg/dL (0.0-1.0); Blood Urea Nitrogen 14 mg/dL (9-16); Calcium 8.9 mg/dL (8.4-10.2); Carbon Dioxide 25 mmol/L (22-29); Chloride 104 mmol/L (96-108); Cholesterol 159 mg/dL; Estimated Glomerular Filt Rate > 60; Glucose Fasting 104 mg/dL (60-99); HDL Cholesterol 36 mg/dL; LDL Cholesterol Calculated 93 mg/dl; Potassium 4.5 mmol/L (3.3-5.1); Sodium 140 mmol/L (135-145); Total Protein 6.9 g/dL (6.5-8.0); Triglycerides 153 mg/dL
[2021-11-12 14:15] LABS: Thyroid Stimulating Hormone 1.94 uIU/mL (0.32-4.0)
== END 2021-11-12 10:44 | disposition home or self-care (01) ==
LOC: HO.10HDL 10:43
PROVIDERS: Visit Provider Internal Medicine
DX: Z00.00 Encounter for general adult medical examination without abnormal findings (principal); G47.33 Obstructive sleep apnea (adult) (pediatric)
CPT/HCPCS: 36415; 80053; 80061; 84443; 85025

== ENCOUNTER → 2022-04-18 10:47 | Outpatient (BNVA) | payer OTHER, SELFPAY | PROVIDERS: PCP Internal Medicine; Visit Provider Physician Assistant Surgical | DX: Z13.89 Encounter for screening for other disorder (principal) ==

== ENCOUNTER → 2022-05-01 10:36 | Outpatient (BNVA) | payer OTHER, SELFPAY | PROVIDERS: PCP Internal Medicine; Visit Provider Physician Assistant | DX: Z11.0 Encounter for screening for intestinal infectious diseases (principal); E66.01 Morbid (severe) obesity due to excess calories; G47.33 Obstructive sleep apnea (adult) (pediatric); Z99.89 Dependence on other enabling machines and devices; Z68.43 Body mass index [BMI] 50.0-59.9, adult | CPT/HCPCS: 99202; 99211 ==

== ENCOUNTER 2022-05-01 18:01 | Outpatient (REF) | payer OTHER, SELFPAY ==
[2022-05-03 08:55] LABS: H Pylori Breath Test Negative (Negative)
== END 2022-05-01 18:02 | disposition home or self-care (01) ==
LOC: HO.LNP 18:01
PROVIDERS: Visit Provider Physician Assistant
DX: Z01.818 Encounter for other preprocedural examination (principal); E66.01 Morbid (severe) obesity due to excess calories; G47.33 Obstructive sleep apnea (adult) (pediatric); Z99.89 Dependence on other enabling machines and devices; Z11.0 Encounter for screening for intestinal infectious diseases
CPT/HCPCS: 83013

== ENCOUNTER 2022-05-10 08:36 | Outpatient (REF) | payer OTHER, SELFPAY ==
--- NOTE | ~2022-05-10 | XR_ITS ---
EXAMINATION: XR CHEST CLINICAL INFORMATION: Morbid to severe obesity due to excess calories COMPARISON: None available. TECHNIQUE: 2 views of the chest were obtained. FINDINGS: No significant abnormality is noted involving the heart, lungs, mediastinum, bony thorax or soft tissues. XR/XR chest 2V IMPRESSION: Unremarkable chest examination.
--- NOTE | 2022-05-10 08:42 | ECG_ITS ---
Test Reason : e66.01 Blood Pressure : / mmHG Vent. Rate : 064 BPM Atrial Rate : 064 BPM P-R Int : 150 ms QRS Dur : 100 ms QT Int : 420 ms P-R-T Axes : -05 045 031 degrees QTc Int : 433 ms Normal sinus rhythm Normal ECG When compared with ECG of 14-SEP-2019 10:36, No significant change was found Referred By: Florence Borden Electronically Signed By:GEOFF HERRMANN MD
[2022-05-10 09:01] LABS: MANUAL DIFF FLAG NO
[2022-05-10 09:33] LABS: Basophils Percent Auto 0.5 % (0-2); Eosinophils Absolute Auto 0.2 X10*3/uL (0.0-0.4); Eosinophils Percent Auto 2.1 % (0-4); Hematocrit 46.2 % (42.0-52.0); Hemoglobin 15.2 g/dl (14.0-18.0); Imm Gran Abs Auto 0.04 X10*3/uL (0.00-0.03); Imm Gran Pct Auto 0.5 % (0.0-0.4); Lymphocytes Absolute Auto 2.5 X10*3/uL (1.2-4.9); Lymphocytes Percent Auto 30.5 % (20-40); Mean Corpuscular HGB Conc 32.9 g/dl (31.0-36.0); Mean Corpuscular Hemoglobin 28.8 pg (27.0-33.0); Mean Corpuscular Volume 87.5 fL (80.0-98.0); Mean Platelet Volume 11.5 fL (9.4-12.4); Monocytes Absolute Auto 0.9 X10*3/uL (0.1-1.2); Monocytes Percent Auto 10.4 % (2-11); Neutrophils Absolute Auto 4.6 x10*3/uL (2.0-8.3); Platelet Count 200 X10*3/uL (160-400); Red Blood Count 5.28 X10*6/uL (4.60-5.80); Red Cell Distribution Width 12.7 % (11.0-16.0); White Blood Count 8.2 X10*3/uL (4.8-10.8)
[2022-05-10 09:43] LABS: Estimated Average Glucose 128 mg/dL; Hemoglobin A1c % 6.1 %
[2022-05-10 10:10] LABS: Alanine Aminotransferase 16 U/L (0-40); Albumin Level 4.2 g/dL (3.5-5.0); Alkaline Phosphatase 63 U/L (39-117); Anion Gap 13 (12-20); Aspartate Amino Transferase 15 U/L (5-37); Bilirubin Total 0.9 mg/dL (0.0-1.0); Blood Urea Nitrogen 20 mg/dL (9-16); C Reactive Protein 0.94 mg/dL (< or = 0.50); Calcium 8.7 mg/dL (8.4-10.2); Carbon Dioxide 24 mmol/L (22-29); Chloride 106 mmol/L (96-108); Cholesterol 150 mg/dL; Estimated Glomerular Filt Rate > 60; Glucose Random 93 mg/dL (60-115); HDL Cholesterol 31 mg/dL; Iron 98 mcg/dL (45-160); LDL Cholesterol Calculated 102 mg/dl; Percent Iron Saturation 39 % (15-50); Potassium 4.4 mmol/L (3.3-5.1); Sodium 139 mmol/L (135-145); Total Iron Binding Capacity 253 mcg/dL (228-428); Total Protein 6.8 g/dL (6.5-8.0); Triglycerides 86 mg/dL; Unsaturated Iron Binding 155 ug/dL
[2022-05-10 10:30] LABS: Ferritin 525 ng/mL (20-250); Folate 8.7 ng/mL (> or = 4.0); Insulin 11 uU/mL (2-29); TSH reflex Free T4 2.64 uIU/mL (0.32-4.0); Vitamin B12 349 pg/mL (200-900); Vitamin D 25-OH Total 11.8 ng/mL (>30)
[2022-05-13 12:48] LABS: Calcium (PTHI) 9.1 mg/dL (8.6-10.3); PTHI 50 pg/mL (16-77)
[2022-05-15 06:03] LABS: Zinc 85 mcg/dL (60-130)
[2022-05-15 17:39] LABS: Vitamin A 36 mcg/dL (38-98)
[2022-05-19 10:33] LABS: Vitamin B1 9 nmol/L (8-30)
== END 2022-05-10 08:37 | disposition home or self-care (01) ==
LOC: HO.XRAY 08:36
PROVIDERS: PCP Internal Medicine; Referring Provider Internal Medicine; Visit Provider Physician Assistant
DX: Z01.818 Encounter for other preprocedural examination (principal); E66.01 Morbid (severe) obesity due to excess calories; G47.33 Obstructive sleep apnea (adult) (pediatric); Z99.89 Dependence on other enabling machines and devices
CPT/HCPCS: 36415; 71046; 80053; 80061; 82306; 82607; 82728; 82746; 83036; 83525; 83540; 83970; 84425; 84443; 84590; 84630; 85025; 86140; 93005

== ENCOUNTER → 2022-05-24 10:25 | Outpatient (BNVA) | payer OTHER, SELFPAY | PROVIDERS: PCP Internal Medicine; Visit Provider Physician Assistant | DX: E66.01 Morbid (severe) obesity due to excess calories (principal); Z68.42 Body mass index [BMI] 45.0-49.9, adult | CPT/HCPCS: 99212 ==

== ENCOUNTER → 2022-06-05 10:09 | Outpatient (BNVA) | payer OTHER, SELFPAY | PROVIDERS: PCP Internal Medicine; Visit Provider Dietitian, Registered | DX: E66.01 Morbid (severe) obesity due to excess calories (principal); Z71.3 Dietary counseling and surveillance | CPT/HCPCS: 97802 ==

== ENCOUNTER → 2022-06-14 10:56 | Outpatient (BNVA) | payer OTHER, SELFPAY | PROVIDERS: PCP Internal Medicine; Visit Provider Physician Assistant | DX: E66.01 Morbid (severe) obesity due to excess calories (principal); G47.33 Obstructive sleep apnea (adult) (pediatric); Z99.89 Dependence on other enabling machines and devices; Z68.42 Body mass index [BMI] 45.0-49.9, adult | CPT/HCPCS: 99212 ==

== ENCOUNTER → 2022-06-28 12:39 | Outpatient (BNVA) | payer OTHER, SELFPAY | PROVIDERS: PCP Internal Medicine; Visit Provider Counselor Mental Health ==

== ENCOUNTER 2022-07-03 08:20 | Outpatient (REF) | payer OTHER, SELFPAY ==
--- NOTE | ~2022-07-03 | US_ITS ---
EXAMINATION: US COMPLETE ABDOMEN WITH LIVER ELASTOGRAPHY CLINICAL INFORMATION: Morbid/severe obesity due to excess calories. COMPARISON: None available. TECHNIQUE: Real-time imaging of the abdominal viscera. Noninvasive ultrasound liver fibrosis assessment is performed using Keren ElastPQ point quantification shear wave elastography (2D-SWE) with a C5-2 MHz transducer. Multiple elastography samples are obtained. FINDINGS: PANCREAS: Normal. The visualized pancreatic head and body are normal in appearance. The remainder of the pancreas is obscured from visualization by the overlying bowel gas. ABDOMINAL AORTA: The proximal, middle, and distal aortic segments are normal in caliber. INFERIOR VENA CAVA: Visualized portions are normal. LIVER: Normal. The liver demonstrates normal size, contour and echogenicity. No focal lesion or intrahepatic biliary duct dilatation. The right lobe measures 16.7 cm in length. The left lobe measures 12.6 cm in length. Portal flow is hepatopedal. Shear wave liver elastography median stiffness is 1.75 m/s (reference: normal median stiffness is 1.3 m/s or less). IQR/median stiffness to assess sampling precision is 0.03 (reference: good quality data set is IQR/median stiffness of 0.15 or less). 12.5 GALLBLADDER: Normal. The gallbladder is physiologically distended without evidence of stones, sludge, polyps, wall thickening or pericholecystic fluid. COMMON BILE DUCT: Normal in caliber measuring 0.4 cm in diameter. RIGHT KIDNEY: Normal. No hydronephrosis. No renal calculi or focal parenchymal lesions. The kidney measures 14.2 cm in maximum dimension. LEFT KIDNEY: Normal. No hydronephrosis. No renal calculi or focal parenchymal lesions. The kidney measures 12.5 cm in maximum dimension. SPLEEN: Normal. The spleen measures 12.1 cm in maximum dimension. FREE FLUID: None. US/US abdomen comp w elastography IMPRESSION: 1. Unremarkable complete abdomen ultrasound. 2. Liver elastography: Median liver stiffness measures 1.75 m/s corresponding to cACLD (suggestive). REFERENCE: Society of Radiologists in Ultrasound Liver Stiffness Thresholds (2020): LIVER STIFFNESS THRESHOLDS: *Liver Stiffness equal or less than 1.3 m/s: High probability of being normal. *Liver Stiffness less than 1.7 m/s: In the absence of other known clinical signs, rules out compensated advanced chronic liver disease. *Liver Stiffness 1.7-2.1 m/s: Suggestive of compensated advanced chronic liver disease but need further test for confirmation. *Liver Stiffness over 2.1 m/s: Rules in compensated advanced chronic liver disease. *Liver Stiffness over 2.4 m/s: Suggestive of clinically significant portal hypertension. QUALITY OF DATA SET: *IQR/Median value equal or less than 0.15 implies a quality data set. *IQR/Median value over 0.15 implies a poor quality data set. SIGNIFICANT CHANGE FROM PRIOR EXAM: Significant change if liver stiffness measurement is 10% or greater from prior exam. OTHER CONSIDERATIONS: The stage of liver fibrosis may be overestimated in the setting of acute hepatitis, liver inflammation, elevated liver function tests, hepatic vascular congestion, obstructive cholestasis, non-fasting state, and infiltrative diseases such as amyloidosis and lymphoma. In some patients with NAFLD, the liver stiffness thresholds for compensated advanced chronic liver disease may be lower. In causes other than viral hepatitis and NAFLD, liver stiffness thresholds are not well established.
--- NOTE | ~2022-07-03 | FL_ITS ---
EXAMINATION: XR FLUOROSCOPY UPPER GI WITH AIR CLINICAL INFORMATION: Morbid obesity. COMPARISON: None available. TECHNIQUE: Air-contrast upper GI examination. FINDINGS: There is normal apposition of the vocal cords while saying E . There is normal elevation of the soft palate while saying candy . The patient swallowed thin and thick barium and a 1/2 inch diameter barium tablet without difficulty. There is normal esophageal motility without persistent stricture or mucosal irregularity. No hiatal hernia was seen. The stomach demonstrates normal distensibility without abnormal mass or ulceration. There was no delay in gastric emptying. The duodenal bulb and sweep appeared unremarkable. FLUOROSCOPY TIME: 1.6 minutes DOSE AREA PRODUCT: 34.489 Gy-cm2 (fernandez-centimeter squared) FL/FL upper GI w air IMPRESSION: Normal air-contrast upper GI examination.
== END 2022-07-03 08:21 | disposition home or self-care (01) ==
LOC: HO.US 08:20
PROVIDERS: PCP Internal Medicine; Visit Provider Physician Assistant
DX: Z01.818 Encounter for other preprocedural examination (principal); E66.01 Morbid (severe) obesity due to excess calories; K21.9 Gastro-esophageal reflux disease without esophagitis; G47.33 Obstructive sleep apnea (adult) (pediatric); Z99.89 Dependence on other enabling machines and devices
CPT/HCPCS: 74246; 76705; 76981; 99212

== ENCOUNTER 2023-02-13 09:38 | Outpatient (REF) | payer OTHER, SELFPAY ==
[2023-02-13 10:33] LABS: MANUAL DIFF FLAG NO
[2023-02-13 10:36] LABS: Basophils Absolute Auto 0.1 X10*3/uL (0.0-0.2); Basophils Percent Auto 0.6 % (0-2); Eosinophils Absolute Auto 0.2 X10*3/uL (0.0-0.4); Eosinophils Percent Auto 2.1 % (0-4); Hematocrit 47.3 % (42.0-52.0); Hemoglobin 15.5 g/dl (14.0-18.0); Imm Gran Abs Auto 0.04 X10*3/uL (0.00-0.03); Imm Gran Pct Auto 0.4 % (0.0-0.4); Lymphocytes Absolute Auto 3.5 X10*3/uL (1.2-4.9); Lymphocytes Percent Auto 34.3 % (20-40); Mean Corpuscular HGB Conc 32.8 g/dl (31.0-36.0); Mean Corpuscular Hemoglobin 28.7 pg (27.0-33.0); Mean Corpuscular Volume 87.6 fL (80.0-98.0); Mean Platelet Volume 11.6 fL (9.4-12.4); Monocytes Absolute Auto 0.9 X10*3/uL (0.1-1.2); Monocytes Percent Auto 8.7 % (2-11); Neutrophils Absolute Auto 5.4 x10*3/uL (2.0-8.3); Neutrophils Percent Auto 53.9 % (45-73); Platelet Count 203 X10*3/uL (160-400); Red Cell Distribution Width 12.8 % (11.0-16.0); White Blood Count 10.1 X10*3/uL (4.8-10.8)
[2023-02-13 11:02] LABS: Alanine Aminotransferase 27 U/L (0-40); Albumin Level 4.1 g/dL (3.5-5.0); Alkaline Phosphatase 67 U/L (39-117); Anion Gap 14 (12-20); Aspartate Amino Transferase 19 U/L (5-37); Bilirubin Total 0.4 mg/dL (0.0-1.0); Blood Urea Nitrogen 17 mg/dL (9-16); Calcium 8.6 mg/dL (8.4-10.2); Carbon Dioxide 23 mmol/L (22-29); Chloride 106 mmol/L (96-108); Cholesterol 161 mg/dL (<200); Estimated Glomerular Filt Rate > 60; Glucose Random 127 mg/dL (60-115); HDL Cholesterol 40 mg/dL (>40); LDL Cholesterol Calculated 88 mg/dL (<100); Potassium 4.1 mmol/L (3.3-5.1); Sodium 139 mmol/L (135-145); Total Protein 7.2 g/dL (6.5-8.0); Triglycerides 168 mg/dL (<150)
[2023-02-13 13:02] LABS: Estimated Average Glucose 120 mg/dL; Hemoglobin A1c % 5.8 % (<6.0)
== END 2023-02-13 09:39 | disposition home or self-care (01) ==
LOC: HO.10HDL 09:38
PROVIDERS: Visit Provider Internal Medicine
DX: Z00.00 Encounter for general adult medical examination without abnormal findings (principal); E66.01 Morbid (severe) obesity due to excess calories; G47.33 Obstructive sleep apnea (adult) (pediatric); R73.01 Impaired fasting glucose
CPT/HCPCS: 36415; 80053; 80061; 83036; 85025

== ENCOUNTER 2023-04-12 06:12 | Emergency (ER) | payer OTHER, SELFPAY ==
--- NOTE | ~2023-04-12 | XR_ITS ---
EXAMINATION: XR CHEST CLINICAL INFORMATION: Cough. COMPARISON: 05/10/2022. TECHNIQUE: Frontal view of the chest was obtained. FINDINGS: No significant abnormality is noted involving the heart, lungs, mediastinum, bony thorax or soft tissues. XR/XR chest 1V IMPRESSION: Unremarkable examination.
[2023-04-12 06:15] VITALS: BP 120/68; PULSE 94; RESP 18; TEMP 37.1; O2SAT 93; BMI 919.0
--- NOTE | 2023-04-12 06:37 | MHC.EDTECH ---
patient brought into triage area,labs,covid,and flu obtained and sent to lab.
[2023-04-12 06:44] LABS: MANUAL DIFF FLAG NO
[2023-04-12 06:45] LABS: Basophils Percent Auto 0.3 % (0-2); Eosinophils Percent Auto 0.7 % (0-4); Hematocrit 41.4 % (42.0-52.0); Imm Gran Abs Auto 0.01 X10*3/uL (0.00-0.03); Imm Gran Pct Auto 0.2 % (0.0-0.4); Lymphocytes Absolute Auto 0.7 X10*3/uL (1.2-4.9); Lymphocytes Percent Auto 11.6 % (20-40); Mean Corpuscular HGB Conc 33.8 g/dl (31.0-36.0); Mean Corpuscular Hemoglobin 29.1 pg (27.0-33.0); Mean Corpuscular Volume 86.1 fL (80.0-98.0); Mean Platelet Volume 11.7 fL (9.4-12.4); Monocytes Absolute Auto 0.8 X10*3/uL (0.1-1.2); Monocytes Percent Auto 12.4 % (2-11); Neutrophils Absolute Auto 4.6 x10*3/uL (2.0-8.3); Neutrophils Percent Auto 74.8 % (45-73); Platelet Count 139 X10*3/uL (160-400); Red Blood Count 4.81 X10*6/uL (4.60-5.80); Red Cell Distribution Width 12.8 % (11.0-16.0); White Blood Count 6.1 X10*3/uL (4.8-10.8)
[2023-04-12 06:50] LABS: IDNOW Serial# 08D9AD1C; Influenza A Positive (Negative)
[2023-04-12 06:58] LABS: Anion Gap 17 (12-20); Blood Urea Nitrogen 11 mg/dL (9-16); Carbon Dioxide 19 mmol/L (22-29); Chloride 104 mmol/L (96-108); Creatinine Clr Calc Pharmacy 2085.2; Estimated Glomerular Filt Rate > 60; Glucose Random 117 mg/dL (60-115); Potassium 3.6 mmol/L (3.3-5.1); Sodium 136 mmol/L (135-145)
[2023-04-12 07:03] LABS: COVID-19 Test Negative (Negative); IDNOW Serial# 152EDE1D; Influenza B2 Negative (Negative)
--- NOTE | 2023-04-12 09:14 | ED_ITS ---
HPI - General Adult General Chief complaint: Upper Respiratory Symptoms Stated complaint: Headache/Cough/Chills Time Seen by Provider: 04/12/23 08:44 Source: patient Mode of arrival: ambulatory Limitations: no limitations History of Present Illness HPI narrative: 37-year-old male history of obesity status post laparoscopic sleeve gastrectomy in 2023 presents with fatigue, malaise, nonproductive cough, sore throat, runny nose, nausea that started yesterday. Reports symptoms all started suddenly. He tells me that there is no one sick at home. He reports eating and drinking. Reports symptoms are alleviated by NyQuil/bjee-jcf-pogfsrl medicines. Denies chest pain, shortness of breath, nausea, vomiting, headache, vision changes, dizziness, weakness at this time. Related Data Home Medications Medication Instructions Recorded Confirmed CPAP (CPAP Machine/Device) 05/01/22 06/14/22 Previous Rx's Medication Instructions Recorded cholecalciferol (vitamin D3) 50 50 mcg PO DAILY #30 caps 05/14/22 mcg (2,000 unit) capsule cyanocobalamin (vitamin B-12) 250 250 mcg PO DAILY #30 tabs 05/14/22 mcg tablet vitamin A palmitate 3,000 mcg 6,000 mcg (2 x 3,000 mcg (10,000 05/16/22 (10,000 unit) tablet unit)) PO DAILY 2 weeks #28 tabs albuterol sulfate 90 mcg/actuation 2 inh inhalation Q4-6H PRN 04/12/23 breath activated powder inhaler shortness of breath or wheezing #1 ea prednisone 20 mg tablet 40 mg (2 x 20 mg) PO DAILY 5 days 04/12/23 #10 tabs Allergies Allergy/AdvReac Type Severity Reaction Status Date / Time nicotine [From NICODERM CQ] Allergy Unknown HIVES Verified 04/12/23 06:15 nicoderm patches Allergy Unknown rash Uncoded 04/18/22 11:05 Review of Systems 2 Review of Systems: Yes all other systems are reviewed and are negative PMFSH Past Medical History Attestation statement: The following information was validated with the patient. Source: old records reviewed and nursing notes reviewed Medical History Sciatica No known health problems Surgical History Hx of circumcision Family History Family History Mother No problems noted. Father Hypertension Heart valve disease Sister No problems noted. Sister No problems noted. Sister No problems noted. Brother No problems noted. Son No problems noted. Son No problems noted. Son No problems noted. Daughter No problems noted. 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 Oriented X3.? No acute distress.? Head: Normocephalic, atraumatic, no step-offs or deformities Eyes: Pupils equal, round and reactive to light.? ENT: Pharynx normal.? Neck: Normal inspection.? Neck supple.? CVS: Normal heart rate and rhythm.? Pulses normal.? Respiratory: No respiratory distress.? Breath sounds normal.? Abdomen: Soft and nontender.? Skin: Skin warm and dry.? Normal skin color.? Normal skin turgor.? Extremities: No lower extremity edema.? No calf ttp. 5/5 strength to bilateral upper and lower extremities Neuro: Oriented X 3.? No motor deficit.? No sensory deficit. CN 2-12 intact Course Reevaluation(s) Reevaluation #1: CBC unremarkable. Chemistry no acute findings requiring intervention. Influenza A positive. COVID negative. Unremarkable chest x-ray Patient educated on findings. Educated on ibuprofen and Tylenol. Educated patient on diagnosis and treatment plan, answered all question, patient verbalizes understanding. At this time patient will be discharged home, advised to return with new or worsening symptoms. Educated on worrisome signs and symptoms and when to return. At this time I feel comfortable discharge home. Time: 09:18 Reevaluation #2: I did discuss Tamiflu with this patient risks versus benefits patient chose to just go with [id number] medicine and hold on the antiviral med. Time: 09:18 Medical Decision Making Medical Decision Making [facility] Narrative: 37-year-old male presents with viral symptoms for the past day. Physical exam Will rule out flu COVID and RSV. Unlikely strep pharyngitis, peritonsillar abscess, retropharyngeal abscess, threat to airway, pneumonia, PE, ACS, acute respiratory distress, pneumothorax. No signs of acute abdomen. Plan at this time viral testing Differential Diagnosis Differential Diagnoses: The differential diagnosis associated with the presentation includes Will rule out flu COVID and RSV. Unlikely strep pharyngitis, peritonsillar abscess, retropharyngeal abscess, threat to airway, pneumonia, PE, ACS, acute respiratory distress, pneumothorax. No signs of acute abdomen. Admission/Observation Consideration of admission/observation: Escalation of care including admission/observation considered Unlikely Lab Data [facility] Lab Attestation statement: I reviewed the patient's lab results. 04/12/23 06:34 04/12/23 06:34 Labs: Lab Results 04/12/23 Range/Units 06:34 WBC 6.1 (4.8-10.8) X10*3/uL RBC 4.81 (4.60-5.80) X10*6/uL Hgb 14.0 (14.0-18.0) g/dl Hct 41.4 L (42.0-52.0) % MCV 86.1 (80.0-98.0) fL MCH 29.1 (27.0-33.0) pg MCHC 33.8 (31.0-36.0) g/dl RDW 12.8 (11.0-16.0) % Plt Count 139 L D (160-400) X10*3/uL MPV 11.7 (9.4-12.4) fL Immature Gran % (Auto) 0.2 (0.0-0.4) % Neut % (Auto) 74.8 H (45-73) % Lymph % (Auto) 11.6 L (20-40) % Jasper % (Auto) 12.4 H (2-11) % Eos % (Auto) 0.7 (0-4) % Baso % (Auto) 0.3 (0-2) % Lymph # (Auto) 0.7 L (1.2-4.9) X10*3/uL Jasper # (Auto) 0.8 (0.1-1.2) X10*3/uL Eos # (Auto) 0.0 (0.0-0.4) X10*3/uL Baso # (Auto) 0.0 (0.0-0.2) X10*3/uL Abs Immat Gran (auto) 0.01 (0.00-0.03) X10*3/uL Absolute Neuts (auto) 4.6 (2.0-8.3) x10*3/uL Absolute Nucleated RBC 0.000 (0.0-0.012) X10*3/uL Nucleated RBC % (auto) 0.0 (0.0-0.2) /100WBC Sodium 136 (135-145) mmol/L Potassium 3.6 (3.3-5.1) mmol/L Chloride 104 (96-108) mmol/L Carbon Dioxide 19 L (22-29) mmol/L Anion Gap 17 (12-20) BUN 11 (9-16) mg/dL Creatinine 0.90 (0.5-1.4) mg/dL Estim Creat Clear Calc 2085.2 Estimated GFR > 60 Random Glucose 117 H (60-115) mg/dL Calcium 10.0 D (8.4-10.2) mg/dL COVID-19 (ALICE) Negative (Negative) COVID-19 Clin Com See Note Influenza Type A (VENANCIO) Positive A (Negative) Influenza Type B (VENANCIO) Negative (Negative) Influenza A & B Note See Note Independent Interpretation I performed an independent interpretation of an: Plain X-Ray (XR/XR chest 1V IMPRESSION: Unremarkable examination. ) Radiology Impression Discussion of test interpretation with radiology: I have reviewed the radiologist's reading. External Record Review External record reviewed: Inpatient record, Office record, Outpatient record, Prior outpatient labs, Prior outpatient radiology, Primary care record and Outside ED record Prescription Management I considered prescription management with: Other (Prednisone, albuterol) Discharge Plan Discharge Clinical Impression: Influenza Patient Disposition: Home, Self-Care Instructions: Influenza (ED) Additional Instructions: Take your medications as prescribed. If you were prescribed antibiotics today, it is important that you take your medication to their entirety, do not skip any doses, do not finish them early. Follow-up with your primary care provider this week. Return to the emergency department with new or worsening symptoms. Such as fevers, chills, chest pain, shortness of breath, nausea, vomiting, dizziness, headache, vision changes, lethargy In case of emergency call 911 Ibuprofen every 6 hours, Tylenol every 4 as needed for fever, pain or discomfort. Do not exceed maximum daily dose as listed on packaging Prescriptions: New albuterol sulfate 90 mcg/actuation aerosol powdr breath activated 2 inh inhalation Q4-6H PRN (Reason: shortness of breath or wheezing) Qty: 1 0RF prednisone 20 mg tablet 40 mg PO DAILY 5 Days Qty: 10 0RF No Action cholecalciferol (vitamin D3) 50 mcg (2,000 unit) capsule 50 mcg PO DAILY Qty: 30 5RF cyanocobalamin (vitamin B-12) 250 mcg tablet 250 mcg PO DAILY Qty: 30 5RF vitamin A palmitate 3,000 mcg (10,000 unit) tablet 6,000 mcg PO DAILY 14 Days Qty: 28 0RF (DME) CPAP Machine/Device Device See Rx Instructions .Route Rx Instructions: As directed Referrals: Margarette Frederick MD [Primary Care Provider] - 2 days Stand Alone Forms: Work/School Release
== END 2023-04-12 09:21 | disposition home or self-care (01) ==
PROVIDERS: Emergency Provider Emergency Medicine; PCP Internal Medicine
DX: J10.1 Influenza due to other identified influenza virus with other respiratory manifestations (principal); R05.9 Cough, unspecified; R53.83 Other fatigue; J02.9 Acute pharyngitis, unspecified
CPT/HCPCS: 36415; 71045; 80048; 85025; 87502; 87635; 99283

== ENCOUNTER → 2023-11-10 09:51 | Outpatient (BNVA) | payer SELFPAY | PROVIDERS: PCP Internal Medicine; Visit Provider Internal Medicine | DX: Z02.79 Encounter for issue of other medical certificate (principal) ==

== ENCOUNTER 2024-03-31 13:07 | Outpatient (REF) | payer OTHER, SELFPAY ==
[2024-03-31 13:19] LABS: MANUAL DIFF FLAG NO
[2024-03-31 14:19] LABS: Basophils Absolute Auto 0.1 X10*3/uL (0.0-0.2); Basophils Percent Auto 0.8 % (0-2); Eosinophils Absolute Auto 0.2 X10*3/uL (0.0-0.4); Eosinophils Percent Auto 1.9 % (0-4); Hematocrit 46.2 % (42.0-52.0); Imm Gran Abs Auto 0.02 X10*3/uL (0.00-0.03); Imm Gran Pct Auto 0.3 % (0.0-0.4); Mean Corpuscular HGB Conc 32.5 g/dl (31.0-36.0); Mean Corpuscular Hemoglobin 29.9 pg (27.0-33.0); Mean Platelet Volume 11.7 fL (9.4-12.4); Monocytes Absolute Auto 0.6 X10*3/uL (0.1-1.2); Monocytes Percent Auto 7.6 % (2-11); Neutrophils Percent Auto 51.4 % (45-73); Platelet Count 170 X10*3/uL (160-400); Red Blood Count 5.02 X10*6/uL (4.60-5.80); White Blood Count 7.8 X10*3/uL (4.8-10.8)
--- OUTSIDE RECORDS SUMMARY | 2024-03-31 14:31 | XMS_ITS | Clinical Summary ---
Author Organization [facility] ity Address [address] [place] [address] Care Team Providers Care Athletic Coach Name Role Phone Margarette Frederick MD Primary Care Provider [phone] Social History Tobacco Use Types Packs/Day Years Used Date Smoking Tobacco: Never Assessed Sex and Gender Information Value Date Recorded Sex Assigned at Not on file Legal Sex Male 4:51 AM EST Gender Identity Not on file Sexual Orientation Not on file Obstetrics History Last Filed Vital Signs Vital Sign Reading Time Taken Comments Blood Pressure 100/61 04/02/2023 10:31 AM EST Pulse 77 04/02/2023 10:31 AM EST Temperature - - Respiratory Rate - - Oxygen Saturation - - Inhaled Oxygen Concentration - - Weight 157 kg (347 lb) 04/18/2023 12:41 PM EST Height 181.6 cm (5' 11.5 ) 04/02/2023 10:[address] Body Mass Index 47.72 04/02/2023 10:31 AM EST Plan of Treatment Health Maintenance Due Date Last Done Comments DTaP,Tdap,and Td Vaccines (1 - Tdap) 2004 Hepatitis B Vaccines (1 of 3 - 19+ 3-dose series) 2004 Cholesterol Screening (Lipid Panel) 03/19/2023 Depression Screening 03/19/2023 HIV Screening 03/19/2023 Hepatitis C Screening 03/19/2023 Social Influencers of Health Screening 03/19/2023 COVID-19 Vaccine ( - 2023-2 5 season) 2023 Influenza Vaccine (#1) 2023 HIB Vaccines Aged Out No longer eligi ble based on patient's age to complete this topic HPV Vaccines Aged Out No longer eligi ble based on patient's age to complete this topic Hepatitis A Vaccines Aged Out No long er eligible based on patient's age to complete this topic IPV Vaccines Aged Out No longer eligi ble based on patient's age to complete this topic MMR Vaccines Aged Out No longer eligi ble based on patient's age to complete this topic Meningococcal ACWY Vaccine Aged Out N o longer eligible based on patient's age to complete this topic Meningococcal B Vacine Aged Out No lo nger eligible based on patient's age to complete this topic Pneumococcal Vaccine: Pediat rics (0 to 5 Years) and At-Risk Patients (6 to 64 Years) Aged Out No longer eligible b ased on patient's age to complete this topic RSV Immunization Patients Un dariusz 20 months Aged Out No longer eligible b ased on patient's age to complete this topic Varicella Vaccines Aged Out No longer eligible based on patient's age to complete this topic Care Teams Athletic Coach Relationship Specialty Start Date End Date Margarette Frederick MD [address] [place] [address] [place] [address] PCP - General 08/30/22
--- OUTSIDE RECORDS SUMMARY | 2024-03-31 14:31 | XMS_ITS | Clinical Summary ---
Author Organization [employer] Address [address] [place] [address] [address] [place] [address] Care Team Providers Care National Account Executive Name Role Phone Unavailable Primary Care Provider Unavailabl e Allergies No known active allergies Medications No known medications Active Problems Problem Noted Date Diagnosed Date Dental caries 10/09/2022 Immunizations Name Administration Dates Next Due DTP 03/10/1991, 9,03/17/1986,1985,1985 Hep B, Adolescent or Pediatric 09/04/1998,1998,01/03/1997 Hib (HbOC) 01/24/1989 MMR 01/03/1997,12/01/1986 Moderna Covid-19 Vaccine 12+ 09/26/2020 Moderna Covid-19 Vaccine 6+ Bivalent 02/07/2022 OPV 03/10/1991, 9,05/10/1986,1985,1985 Td (adult), 5 Lf tetanus tox oid, preservative free, adsorbed 05/04/1998 Tdap 11/14/2016 Social History Tobacco Use Types Packs/Day Years Used Date Smoking Tobacco: Former Cigarettes 0.3 0.5 Passive Smoke Exposure: Past Smokeless Tobacco: Former Tobacco Cessation:Counseling Given: Not Answered Alcohol Use Standard Drinks/Week Comments Yes 0 (1 standard drink = 0.6 oz pur e alcohol) Sex and Gender Information Value Date Recorded Sex Assigned at Male 12/17/2021 10:33 AM EDT Legal Sex Male 10:33 AM EDT Gender Identity Male 12/17/2021 10:33 AM EDT Sexual Orientation Straight 12/17/2021 10 :33 AM EDT Plan of Treatment Health Maintenance Due Date Last Done Comments Dental Oral Exam 1985 Dental Prophylaxis 1985 Depression Screening 1985 HIV Screening 1985 Lipid Panel 1985 SDOH Screening 1985 Alcohol/Substance Use Screening 1997 Family Planning (PISQ) 2000 Hepatitis C Screening 08/18/2003 Dental X-Ray: Bitewings 08/08/2022 08/07/2021 Tobacco Screening 10/10/2023 10/09/2022 COVID-19 Vaccine ( season) 2023 02/07/2022, 02/08/2021, 09/26/2020, Additional history exists Influenza Vaccine (#1) 2023 Dental X-Ray: Full Mouth 10/10/2025 10/09/2022, 07/19 DTaP/Tdap/Td Vaccines (7 - Td or Tdap) 11/14/2026 11/14/2016, 05/04/1998, 03/10/1991, Additional history exists Zoster Vaccines (1 of 2) 08/18/2035 RSV Patients and Patients Aged 60 years or older (1 - 1-dose 75+ series) 2060 HIB Vaccines Completed 01/24/1989 IPV Vaccines Completed 03/10/1991, 09/1988, 05/10/1986, Additional history exists Hepatitis B Vaccines Completed 09/04/1998, 05/04/1998, 01/03/1997 HPV Vaccines Aged Out No longer eligi ble based on patient's age to complete this topic Hepatitis A Vaccines Aged Out No long er eligible based on patient's age to complete this topic Meningococcal Vaccine Aged Out No guillermo emily eligible based on patient's age to complete this topic Pneumococcal Vaccine: Pediatrics (0 to 5 Years) and At-Risk Patients (6 to 49) Years) Aged Out No longer eligible based on patient's age to complete this topic RSV under 20 months Aged Out No longe r eligible based on patient's age to complete this topic Rotavirus Vaccines Aged Out No longer eligible based on patient's age to complete this topic Procedures Procedure Name Priority Date/Time Associated Diagnosis Comments PANORAMIC RADIOGRAPHIC IMAGE Routine 10/09/2022 11:30 AM EDT DIAGNOSTIC - DIAGNOSTIC IMAGING - INTRAORAL - COMPREHENSIVE SERIES OF RADIOGRAPHIC IMAGES Routine 08/07/2021 12:00 AM EDT from Last 3 Months or Most Recently Relevant to Health Maintenance Insurance [facility] MEDICAID STAND ADULT
--- OUTSIDE RECORDS SUMMARY | 2024-03-31 14:31 | XMS_ITS | Data Portability ---
Author Organization [facility] [id number] Address [address] [place] [id number] Assessment No assessment recorded. Plan of Treatment Reminders Order Date Submit Date Provider Last Modified By Organization Details Last Modified Time Details Appointments None record ed. Lab None record ed. Referral None record ed. Procedures None record ed. Surgeries None record ed. Imaging None record ed. Medication Orders None record ed. Patient TargetsNo targets recorded. Patient InstructionsNo instructions recorded. Reason for Referral None Reported. Procedures Surgical History Date Name Laterality Status Provider Name and Address Organization Details Recorded Time OC-UDS Send Out Template NON DOT completed [facility] 06/05/2022 17:55:20 Imaging Results None recorded. Procedure Notes None recorded. Medical Equipment None Reported. Medications Name Sig Start Date Stop Date Status Note LastModified by Organization Details LastModified Time ibuprofen 800 mg tablet TAKE 1 TABLET BY MOUTH THREE TIMES A DAY WITH FOOD active Not Available Not Available No t Available cyanocobalamin (vit B-12) 250 mcg tablet TAKE 1 TABLET BY MOUTH EVERY DAY active Not Available Not Available No t Available amoxicillin 875 mg tablet TAKE 1 TABLET BY MOUTH EVERY 12 HOURS active Not Available Not Available No t Available vitamin A 3,000 mcg (10,000 unit) capsule TAKE 2 CAPSULES BY MOUTH ONCE A DAY FOR 2 WEEKS active Not Available Not Available No t Available dexamethasone 4 mg tablet TAKE 1 TABLET BY MOUTH TWICE A DAY FOR 5 DAYS THEN 1 DAILY active Not Available Not Available No t Available naproxen 500 mg tablet TAKE 1 TABLET BY MOUTH TWICE A DAY active Not Available Not Available No t Available cholecalcifero l (vitamin D3) 50 mcg (2,000 unit) capsule TAKE 1 CAPSULE BY MOUTH EVERY DAY active Not Available Not Available No t Available Gavilax 17 gram/dose oral powder MIX AND DRINK 17 GRAMS IN 6 OZ OF WATER ONCE A DAY active Not Available Not Available No t Available Vitals Date Recorded Body height Body mass index (BMI) Body weight Oxygen saturation Oxygen saturation in Arterial blood by Pulse oximetry Heart rate Pain severity - 0-10 verbal numeric rating [Score] - Reported Respiratory rate Systolic blood pressure Diastolic blood pressure Provider Name and Address Organization Details Last Updated DateTime 3 180.34 cm 51.7 kg/m2 004529. 77 g 99 % 99 % 87 /min 0 18 /min 113 mm[Hg] 77 mm[Hg] LATA [facility] - [facility] 3 17:56:28 Social History None recorded. Functional Status None recorded. Mental Status None recorded. Family History Nothing Reported. Medical History No medical history recorded. Past Encounters Encounter ID Performer Location Encounter Start Date Encounter Closed Date Diagnosis/Indication Diagnosis SNOMED-CT Code Diagnosis ICD10 Code Diagnosis Note [id number] [address] 12/06/2016 18:34:01 12/06/2016 19:07:22 [id number] [address] 10/08/2016 11:08:03 10/08/2016 12:05:23 [id number] Christie Sanchez MD [id number] [address] 06/05/2022 17:04:06 06/05/2022 18:37:34 History and physical examination, occupation 603113149 Z02.1 Health Concerns Section Related Observation LastModified by Organization Detai ls LastModified Time None Recorded Concern Status LastModified by Organization Details LastModified Time None Recorded Advance Directives Directive None Recorded Payers Encounter Date Sequence Insurance Name Policy Number Policy Burkett Covered Member ID Burkett Member ID Guarantor Name 06/05/2022 LYRIC Penny [id number] Ariel Penny
--- OUTSIDE RECORDS SUMMARY | 2024-03-31 14:31 | XMS_ITS | Encounter Summary ---
Author Organization [employer] [facility] Address [address] [place] [address] [address] [place] [address] Care Team Providers Care Garment Patternmaker Name Role Phone Darcy Lyle OD Primary Care Provider [phone] Encounter Details Date Type Department Care Team (Late st Contact Info) Description 02/20/2023 Abstract [facility] ADULT D[facility] [address] [place], [place] [id number] Tom Redman DDS [address] [place], [place] [phone] Social History Tobacco Use Types Packs/Day Years Used Date Smoking Tobacco: Former Cigarettes 0.3 0.5 Passive Smoke Exposure: Past Smokeless Tobacco: Former Alcohol Use Standard Drinks/Week Comments Yes 0 (1 standard drink = 0.6 oz pur e alcohol) Sex and Gender Information Value Date Recorded Sex Assigned at Male 12/17/2021 10:33 AM EDT Legal Sex Male 10:33 AM EDT Gender Identity Male 12/17/2021 10:33 AM EDT Sexual Orientation Straight 12/17/2021 10 :33 AM EDT documented as of this encounter Plan of Treatment Not on file documented as of this encounter Visit Diagnoses Not on filedocumented in this encounter Care Teams Garment Patternmaker Relationship Specialty Start Date End Date Darcy Lyle OD [address] [place] [id number] PCP - General Optometry 07/09/17 02/23/23 documented as of this encounter
[2024-03-31 15:00] LABS: Alanine Aminotransferase 15 U/L (0-40); Albumin Level 4.4 g/dL (3.5-5.0); Alkaline Phosphatase 55 U/L (39-117); Anion Gap 11 (12-20); Aspartate Amino Transferase 15 U/L (5-37); Bilirubin Total 0.8 mg/dL (0.0-1.0); Blood Urea Nitrogen 13 mg/dL (9-16); Calcium 8.8 mg/dL (8.4-10.2); Carbon Dioxide 28 mmol/L (22-29); Chloride 107 mmol/L (96-108); Cholesterol 132 mg/dL (<200); Estimated Glomerular Filt Rate > 60; Glucose Random 86 mg/dL (60-115); HDL Cholesterol 48 mg/dL (>40); LDL Cholesterol Calculated 68 mg/dL (<100); Potassium 4.4 mmol/L (3.3-5.1); Sodium 142 mmol/L (135-145); Total Protein 7.4 g/dL (6.5-8.0); Triglycerides 84 mg/dL (<150)
[2024-03-31 15:43] LABS: Folate 5.6 ng/mL (> or = 4.0); Vitamin B12 258 pg/mL (200-900)
== END 2024-03-31 13:08 | disposition home or self-care (01) ==
LOC: HO.LAB 13:07
PROVIDERS: PCP Internal Medicine; Visit Provider Internal Medicine
DX: Z00.00 Encounter for general adult medical examination without abnormal findings (principal); F31.9 Bipolar disorder, unspecified; G47.33 Obstructive sleep apnea (adult) (pediatric); I10 Essential (primary) hypertension; Z98.84 Bariatric surgery status
CPT/HCPCS: 36415; 80053; 80061; 82607; 82746; 85025

== ENCOUNTER 2025-01-29 21:10 | Emergency (ER) | payer OTHER, SELFPAY ==
--- NOTE | ~2025-01-29 | XR_ITS ---
CLINICAL HISTORY: pain 3 views lumbar spine Comparison: None provided Findings: Normal vertebral body alignment. No acute fractures or dislocation. No significant degenerative change. Lumbar levoscoliosis. IMPRESSION: 1. Lumbar levoscoliosis. 2. No acute osseous injury. This document has been electronically signed by: Hal Gant MD on 01/29/2025 22:16:20
[2025-01-29 21:25] VITALS: BP 137/64; PULSE 76; RESP 16; TEMP 36.7; O2SAT 99; BMI 37.6
--- OUTSIDE RECORDS SUMMARY | 2025-01-30 00:13 | XMS_ITS | Encounter Summary ---
Author Organization [employer] Address [address] [facility] [address] [place] [address] Care Team Providers Care Middle [employer] Assistant Principal Name Role Phone Valdo Darcy LOPES Primary Care Provider [phone] Encounter Details Date Type Department Care Team (Late st Contact Info) Description 02/20/2023 Abstract [facility] ADULT DENTAL [address] [place], [place] [phone] Tom Redman DDS [address] [place] [address] Social History Tobacco Use Types Packs/Day Years [...] on filedocumented in this encounter Care Teams Middle School Assistant Principal Relationship Specialty Start Date End Date Darcy Lyle OD [address] [place] [id number] PCP - General Optometry 07/09/17 02/23/23 documented as of this encounter
--- OUTSIDE RECORDS SUMMARY | 2025-01-30 00:13 | XMS_ITS | Clinical Summary ---
Author Organization [employer] Address [address] [place] [address] [address] [place] [address] Care Team Providers Care Blade Aligner Name Role Phone Unavailable Primary Care Provider Unavailabl e Allergies No known active allergies Medications No known medications Active Problems Problem Noted Date Diagnosed Date Dental caries 10/09/2022 Immunizations Immunization Administration Dates Next Due DTP 03/10/1991, 9,03/17/1986,1985,1985 Hep B, Adolescent or Pediatric 09/04/1998,1998,01/03/1997 Hib (HbOC) 01/24/1989 MMR 01/03/1997,12/01/1986 Moderna Covid-19 Vaccine 12+ 09/26/2020 Moderna Covid-19 Vaccine 6+ Bivalent 02/07/2022 OPV, Trivalent 03/10/1991, 9,05/10/1986,1985,1985 Td (adult), 5 Lf tetanus [...] 1985 Lipid Panel 1985 SDOH Screening 1985 Disability Screening 1985 Alcohol/Substance Use Screening 1997 Family Planning (PISQ) 2000 HPV Vaccines (1 - Male 3-dose series) 2000 Hepatitis C Screening 08/18/2003 Dental X-Ray: Bitewings 08/08/2022 08/07/2021 Tobacco Screening 10/10/2023 10/09/2022 COVID-19 Vaccine (6 - 2024- season) 2024 02/07/2022, 02/08/2021, 09/26/2020, Additional history exists Influenza Vaccine (#1) 2024 Dental X-Ray: Full Mouth 10/10/2025 10/09/2022, 07/19 DTaP/Tdap/Td Vaccines (7 - Td or Tdap) 11/14/2026 11/14/2016, 05/04/1998, 03/10/1991, Additional history exists Zoster Vaccines (1 of 2) 08/18/2035 RSV Patients and Patients Aged 60 years or older (1 - 1-dose 75+ series) 2060 HIB Vaccines Completed 01/24/1989 IPV Vaccines Completed 03/10/1991, 09/1988, 05/10/1986, Additional history exists Hepatitis B Vaccines Completed 09/04/1998, 05/04/1998, 01/03/1997 Hepatitis A Vaccines Aged Out No long er eligible based on patient's age to complete this topic Meningococcal B Vaccine Aged Out No l onger eligible based on patient's age to complete this topic Meningococcal Vaccine Aged Out No guillermo emily eligible based on patient's age to complete this topic Pneumococcal Vaccine: Pediatrics (0 to 5 Years) and At-Risk Patients (6 to 49) Years Aged Out No longer eligible based on patient's age to complete this topic RSV under 20 months Aged Out No longe r eligible based on patient's age to complete this topic Rotavirus Vaccines Aged Out No longer eligible based on patient's age to complete this topic Procedures Procedure Name Priority Date/Time Associated Diagnosis Comments PANORAMIC RADIOGRAPHIC IMAGE Routine 10/09/2022 11:30 AM EDT INTRAORAL - COMPLETE SERIES OF RADIOGRAPHIC IMAGES Routine 08/07/2021 12:00 AM EDT from Last 3 Months or Most Recently Relevant to Health Maintenance Insurance [facility]
--- OUTSIDE RECORDS SUMMARY | 2025-01-30 00:13 | XMS_ITS | Clinical Summary ---
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 Name Role Phone Margarette Frederick MD Primary Care Provider [phone] Social History Tobacco Use Types Packs/Day Years Used Date Smoking Tobacco: Never Assessed Sex and Gender Information Value Date Recorded Sex Assigned at Not on file Legal Sex Male 4:51 AM EST Gender Identity Not on file Sexual Orientation Not on file Last Filed Vital Signs Vital Sign Reading [...] Health Maintenance Due Date Last Done Comments HPV Vaccines (1 - 3-dose SCDM series) 2012 Cholesterol Screening (Lipid Panel) 03/19/2023 HIV Screening 03/19/2023 Hepatitis C Screening 03/19/2023 Social Influencers of Health Screening 03/19/2023 Depression Screening 02/18/2024 COVID-19 Vaccine ( season) 2024 02/07/2022, 09/26/2020 Influenza Vaccine (#1) 2024 DTaP,Tdap,and Td Vaccines (8 - Td or Tdap) 11/14/2026 11/14/2016, 05/04/1998, 03/10/1991, Additional history exists RSV Immunization Adult Patients (1 - 1-dose 75+ series) 2060 HIB Vaccines Completed 01/24/1989 IPV Vaccines Completed 03/10/1991, 09/1988, 05/10/1986, Additional history exists MMR Vaccines Completed 01/03/1997, 12/01/1986 Hepatitis B Vaccines Completed 09/04/1998, 05/04/1998, 01/03/1997 [...] 5 Years) and At-Risk Patients (6 to 49 Years) Aged Out No longer eligible based on patient's age to complete this topic RSV Immunization Patients Under 20 months Aged Out No longer eligible based on patient's age to complete this topic Varicella Vaccines Aged Out No longer eligible based on patient's age to complete this topic Care Teams Cigar Making Machine Operator Relationship Specialty Start Date End Date Margarette Frederick MD [address] [place] [address] [place] [id number] PCP - General 08/30/22
--- OUTSIDE RECORDS SUMMARY | 2025-01-30 00:13 | XMS_ITS | Data Portability ---
Author Organization [facility] [address] Address [address] [place] [address] Assessment No assessment recorded. Plan of Treatment [...] Name and Address Organization Details Recorded Time 3 OC-UDS Send Out Template NON DOT completed LATA ROBYN CHR[facility] 06/05/2022 17:55:20 Imaging Results None recorded. [...] mass index (BMI) Body weight Oxygen saturation Heart rate Pain severity - 0-10 verbal numeric rating [Score] - Reported Respiratory rate Systolic And Diastolic Provider Name and Address Organization Details Last Updated DateTime 3 180.34 cm 51.7 kg/m2 352012. 77 g 99 % 87 /min 0 18 /min 113/77 mm[Hg] LATA ROBYN PA - [facility] 3 17:56:28 Social History None recorded. Functional Status None recorded. Mental Status None recorded. Family History Nothing Reported. Medical History No medical history recorded. Past Encounters Encounter ID Performer Location Encounter Start Date Encounter Closed Date Diagnosis/Indication Diagnosis SNOMED-CT Code Diagnosis ICD10 Code Diagnosis IMO Codes Diagnosis Note [id number] [facility] [address] [address] 12/06/2016 18:34:01 12/06/2016 19:07:22 [id number] [address] [address] [address] 10/08/2016 11:08:03 10/08/2016 12:05:23 [id number] Christie Sanchez MD [address] [address] [place] [address] 06/05/2022 17:04:06 06/05/2022 18:37:34 History and physical examination, occupation 861140486 Z02.1 Health Concerns Section Related Observation LastModified by Organization Detai ls LastModified Time None Recorded Concern Status LastModified by Organization Details LastModified Time None Recorded Advance Directives Directive None Recorded Payers Insurance Date Sequence Insurance Name Policy Number Policy Burkett Covered Member ID Burkett Member ID Guarantor Name 06/05/2022 MANAN-MILLER Penny [id number] Ariel Penny
--- NOTE | 2025-01-30 00:42 | ED.GENADULT ---
HPI - General Adult General Chief complaint: Back Pain/Injury Stated complaint: lower back pain Time Seen by Provider: 01/30/25 00:21 Source: patient Limitations: no limitations History of Present Illness ED Provider: Margaret Vazquez PA-C HPI narrative: 39-year-old male with a history of morbid obesity, NAOMIE on CPAP, who presents with atraumatic low back pain after sneezing. Patient has had symptoms since January 24. He states he bent over sneeze, then developed acute onset left-sided low back pain. The pain is radiating into left lower extremity. Denies weakness of lower extremity, paresthesia, urinary retention or bowel incontinence. Patient has been using meloxicam without relief of symptoms. Related Data Home Medications ?Medication ?Instructions ?Recorded ?Confirmed CPAP (CPAP Machine/Device) 05/01/22 06/14/22 Previous Rx's ?Medication ?Instructions ?Recorded cholecalciferol (vitamin D3) 50 50 mcg PO DAILY #30 caps 05/14/22 mcg (2,000 unit) capsule cyanocobalamin (vitamin B-12) 250 250 mcg PO DAILY #30 tabs 05/14/22 mcg tablet vitamin A palmitate 3,000 mcg 6,000 mcg (2 x 3,000 mcg (10,000 05/16/22 (10,000 unit) tablet unit)) PO DAILY 2 weeks #28 tabs albuterol sulfate 90 mcg/actuation 2 inh inhalation Q4-6H PRN 04/12/23 breath activated powder inhaler shortness of breath or wheezing #1 ea prednisone 20 mg tablet 40 mg (2 x 20 mg) PO DAILY 5 days 04/12/23 #10 tabs ketorolac 10 mg tablet 10 mg PO Q6H PRN pain #20 tabs 01/30/25 methocarbamol 750 mg tablet 1,500 mg (2 x 750 mg) PO Q8H PRN 01/30/25 pain, moderate #30 tabs prednisone 20 mg tablet 40 mg (2 x 20 mg) PO DAILY #10 tabs 01/30/25 Allergies Allergy/AdvReac Type Severity Reaction Status Date / Time nicotine (From NICODERM CQ) Allergy Unknown HIVES Verified 01/29/25 21:27 nicoderm patches Allergy Unknown rash Uncoded 04/18/22 11:05 Review of Systems Review of Systems: Yes all other systems are reviewed and are negative Constitutional: Constitutional: Denies fatigue and Denies fever(s) Cardiovascular: Cardiovascular: Denies chest pain and Denies dyspnea Respiratory: Respiratory: Denies dyspnea Gastrointestinal: Gastrointestinal: Denies abdominal pain Genitourinary: Genitourinary: Denies flank pain Musculoskeletal: Musculoskeletal: Reports back pain, Denies muscle weakness, Denies numbness, Reports radiating pain into limb and Denies tingling Neurologic: Denies numbness and Denies tingling Endocrine: Endocrine: Denies fatigue PMFSH Past Medical History Attestation statement: The following information was validated with the patient. Medical History Sciatica No known health problems Surgical History Hx of circumcision Family History Family History Mother No problems noted. Father Hypertension Heart valve disease Sister No problems noted. Sister No problems noted. Sister No problems noted. Brother No problems noted. Son No problems noted. Son No problems noted. Son No problems noted. Daughter No problems noted. 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 Physical Exam ED Vital Signs: Vital Signs - 24 hr 01/29/25 21:25 Temperature 98.0 F Pulse Rate 76 Respiratory Rate 16 Blood Pressure 137/64 Pulse Oximetry 99 Oxygen Delivery Method Room Air BMI result Body Mass Index 37.6 Const Other: Alert Orientation/consciousness: patient oriented x3 Resp Effort & Inspection: normal respiratory effort Cardio Other: Normal peripheral perfusion Skin Other: Warm dry no rash Neuro General: patient oriented x3, gait normal, no focal motor deficits and CN's II-XI intact bilaterally Extrem Other: Strength 5/5 bilateral lower extremities Psych Other: Cooperative Medications Administered Discontinued Medications Generic Name Dose Route Start Last Admin Trade Name Freq PRN Reason Stop Dose Admin Ketorolac Tromethamine 15 mg 01/30/25 00:31 12/14/25 01:06 Ketorolac Tromethamine 15 Mg/Ml Vial IM 01/30/25 00:32 15 mg ONCE ONE Administration Lidocaine 2 patch 01/30/25 00:31 01/30/25 01:06 Lidocaine 4 % Patch Adh..Patch TRANSDERMA 01/30/25 00:32 2 patch ONCE ONE Administration Protocol Methocarbamol 1,500 mg 01/30/25 00:31 01/30/25 01:07 Methocarbamol 750 Mg Tablet PO 01/30/25 00:32 1,500 mg ONCE ONE Administration Medical Decision Making Medical Decision Making MDM Narrative: 39-year-old male with a history of morbid obesity, NAOMIE on CPAP, who presents with atraumatic low back pain after sneezing. Patient has had symptoms since January 24. He states he bent over sneeze, then developed acute onset left-sided low back pain. The pain is radiating into left lower extremity. Denies weakness of lower extremity, paresthesia, urinary retention or bowel incontinence. Patient has been using meloxicam without relief of symptoms. Problem: Chronic back pain, morbid obesity History: Per patient I have considered the following differential diagnoses: Lumbar strain, lumbar radiculopathy, compression fracture, cauda equina Plan: X-ray ordered from triage, he has a arthritic changes and scoliosis, he has no red flag signs symptoms concerning for cord compression with the his radicular symptoms. We will treat accordingly I have independently reviewed the following tests: X-ray lumbar spine:Findings: Normal vertebral body alignment. No acute fractures or dislocation. No significant degenerative change. Lumbar levoscoliosis. IMPRESSION: 1. Lumbar levoscoliosis. 2. No acute osseous injury. Differential Diagnosis Differential Diagnoses: The differential diagnosis associated with the presentation includes See MDM Admission/Observation Consideration of admission/observation: Escalation of care including admission/observation considered Not applicable Radiology Impression Discussion of test interpretation with radiology: I have reviewed the radiologist's reading. Discharge Plan Discharge Clinical Impression: Left lumbar radiculopathy Patient Disposition: Home, Self-Care Instructions: Lumbar Radiculopathy (ED) Additional Instructions: You are being treated for sciatica or lumbar radiculopathy. See home care instructions. Use the lidocaine patches as needed. Use the ketorolac as directed this is an anti-inflammatory take it with food. Take the steroid as directed, this is a 2nd anti-inflammatory. Use the methocarbamol as needed for further pain, this is a muscle relaxant. This medication will cause drowsiness, do not drive or operate machinery while taking the medication. Continue to follow up with your primary care provider, and your hazardous waste management specialist, as needed. Prescriptions: New prednisone 20 mg tablet 40 mg PO DAILY Qty: 10 0RF ketorolac 10 mg tablet 10 mg PO Q6H PRN (Reason: pain) Qty: 20 0RF Rx Instructions: maximum total duration of 5 days from all oral, intranasal, or parenteral formulations, the patient received an intramuscular dose of Toradol here in the emergency room methocarbamol 750 mg tablet 1,500 mg PO Q8H PRN (Reason: pain, moderate) Qty: 30 0RF No Action cholecalciferol (vitamin D3) 50 mcg (2,000 unit) capsule 50 mcg PO DAILY Qty: 30 5RF cyanocobalamin (vitamin B-12) 250 mcg tablet 250 mcg PO DAILY Qty: 30 5RF vitamin A palmitate 3,000 mcg (10,000 unit) tablet 6,000 mcg PO DAILY 14 Days Qty: 28 0RF albuterol sulfate 90 mcg/actuation aerosol powdr breath activated 2 inh inhalation Q4-6H PRN (Reason: shortness of breath or wheezing) Qty: 1 0RF prednisone 20 mg tablet 40 mg PO DAILY 5 Days Qty: 10 0RF (DME) CPAP Machine/Device Device See Rx Instructions .Route Rx Instructions: As directed Interventions: ED Discharge Assessment Last Done: 01/30/25 01:13 Discharge Date/Time: 01/30/25 01:15 Print Language: Burkinan
[2025-01-30] MEDS: Lidocaine 4 % Patch ADH..PATCH 2 PATCH TRANSDERMA (01:06)
[2025-01-30 01:13] VITALS: BP 137/64; PULSE 76; RESP 16; TEMP 36.7; O2SAT 99
== END 2025-01-30 01:15 | disposition home or self-care (01) ==
PROVIDERS: Emergency Provider Emergency Medicine; PCP Internal Medicine
DX: M54.16 Radiculopathy, lumbar region (principal); G47.33 Obstructive sleep apnea (adult) (pediatric); Z99.89 Dependence on other enabling machines and devices
CPT/HCPCS: 72100; 96372; 99283; 99284; J1885

== ENCOUNTER → 2025-01-29 21:49 | Outpatient (BNV) | payer OTHER, SELFPAY | PROVIDERS: PCP Internal Medicine; Visit Provider Radiology Diagnostic Radiology | DX: M41.86 Other forms of scoliosis, lumbar region (principal) | CPT/HCPCS: 72100 ==